=== PATIENT | male | born 1960 | race African-American/Black ===

== ENCOUNTER 2016-10-07 10:39 | Inpatient (IN) | payer OTHER ==
[~2016-10-07] VITALS: Ht 185.4 cm; Wt 149.2 kg
[~2016-10-07 10:39] MED LIST: ALLOPURINOL100 MG PO; BACO TOP; BG MC; COL100 PO; COZ50 PO; COZAAR50 MG PO; DONLUD PO; ECO81 PO; ELA10 PO; ELA25 PO; HIBICLENS118 ML TOP; HUMULIN R100 U/1 M1 SC; HYD25 PO; HYDROCHLOROTHIA25 MG PO; IND50 PO; INDOMETHACIN50 MG PO; INSR SC; JANUVIA PO; LANTI SQ; LEVEMIR100 U/M1 SQ; LIPI20 PO; METOPROLOL TART25 M1 PO; MILK OF MA1200 MG/11 PO; MIRUD PO; MOTRIN800 MG PO; MYL80 CH; NOR10 PO; NORCO1 TA2 PO; PRO40 PO; REG10 PO; REGLAN10 MG PO; SEN PO; SYN1 PO; SYN25 PO; TORADOL10 MG PO; ZES10 PO; ZYL300 PO
[2016-10-07 11:55] LABS: BASOPHIL % 0.3 % (0-2); PLATELET COUNT 355 x10^3mcL (130-400); RED CELL DISTRIBUTION WIDTH 14.2 % (11.5-14.5)
[2016-10-07 12:15] LABS: CALCIUM 9.5 mg/dL (8.5-10.1); CARBON DIOXIDE 20.1 mmol/L (21-32); CREATININE SERUM 3.2 mg/dL (0.7-1.3); POTASSIUM SERUM 3.8 mmol/L (3.5-5.1)
[2016-10-07 12:19] LABS: ALBUMIN 3.9 g/dL (3.4-5.0); BILIRUBIN TOTAL 0.94 mg/dL (0.20-1.00)
[2016-10-07 12:21] LABS: TOTAL PROTEIN, SERUM 8.7 g/dL (6.4-8.2)
[2016-10-07 13:55] LABS: AMPHETAMINE QUAL UR NONE DETECTED (NEG <=1000)
[2016-10-07 16:04] LABS: CHOLESTEROL/HDL RATIO 4.1; MAGNESIUM 1.8 mg/dL (1.8-2.4)
[2016-10-07 16:11] LABS: FREE T4 1.52 ng/dL (0.76-1.46); T4(THYROXINE) 11.7 ug/dL (4.7-13.3)
[2016-10-07 16:38] VITALS: BP 188/130
[2016-10-07 16:41] LABS: T3 TOTAL 0.75 ng/mL
[2016-10-07 16:44] VITALS: Ht 185.4 cm; Wt 149.2 kg
[2016-10-07 21:42] VITALS: BP 193/125
[2016-10-07 22:21] VITALS: BP 147/100
[2016-10-08 06:07] VITALS: BP 111/73
[2016-10-08 06:19] LABS: BASOPHIL % 0.4 % (0-2); PLATELET COUNT 308 x10^3mcL (130-400); RED CELL DISTRIBUTION WIDTH 14.4 % (11.5-14.5)
[2016-10-08 06:37] LABS: CALCIUM 8.4 mg/dL (8.5-10.1); CARBON DIOXIDE 27.2 mmol/L (21-32); CREATININE SERUM 2.2 mg/dL (0.7-1.3); MAGNESIUM 1.8 mg/dL (1.8-2.4)
[2016-10-08 08:59] VITALS: BP 114/62
[2016-10-08 11:20] LABS: microscopic required? NO
[2016-10-08 11:26] LABS: urine erythrocyte NEGATIVE (NEGATIVE)
[2016-10-08 12:52] VITALS: BP 118/83
[2016-10-08 21:07] VITALS: BP 139/85
[2016-10-09 05:42] VITALS: BP 121/79
[2016-10-09 06:16] LABS: BASOPHIL % 0.4 % (0-2); PLATELET COUNT 302 x10^3mcL (130-400)
[2016-10-09 06:24] LABS: CALCIUM 8.5 mg/dL (8.5-10.1); CARBON DIOXIDE 27.5 mmol/L (21-32); CREATININE SERUM 1.4 mg/dL (0.7-1.3); MAGNESIUM 1.8 mg/dL (1.8-2.4); PHOSPHOROUS 3.6 mg/dL (2.5-4.9); POTASSIUM SERUM 4.2 mmol/L (3.5-5.1)
[2016-10-09 06:43] LABS: RED CELL DISTRIBUTION WIDTH 14.8 % (11.5-14.5)
[2016-10-09 11:04] VITALS: BP 134/81
== END 2016-10-09 16:04 | disposition left against medical advice (07) | DRG 48 ==
LOC: ED 10:39 → DU 15:03 → MU 10-09 14:34
PROVIDERS: Emergency Medicine; Family Medicine; ADMIT Family Medicine
DX: E11.43 Type 2 diabetes mellitus with diabetic autonomic (poly)neuropathy (principal); N17.0 Acute kidney failure with tubular necrosis; Z68.41 Body mass index [BMI] 40.0-44.9, adult; E11.65 Type 2 diabetes mellitus with hyperglycemia; I42.2 Other hypertrophic cardiomyopathy; E83.39 Other disorders of phosphorus metabolism; E66.01 Morbid (severe) obesity due to excess calories; K31.84 Gastroparesis; E03.9 Hypothyroidism, unspecified; D64.9 Anemia, unspecified; M10.9 Gout, unspecified; E78.5 Hyperlipidemia, unspecified; I11.9 Hypertensive heart disease without heart failure; I16.9 Hypertensive crisis, unspecified
CPT/HCPCS: 80307; 83880; 84439; J1170; J1200; J1815; J1885; J2270; J2550; J2765; J3010; J3490; J7030; J8597; Q0092

== ENCOUNTER 2016-11-25 07:54 | Inpatient (IN) | payer OTHER ==
[~2016-11-25] VITALS: Ht 185.4 cm; Wt 153.3 kg
[2016-11-25] VITALS (7 sets, daily range): BP systolic 104–233; BP diastolic 69–136
--- NOTE | 2016-11-25 08:10 | NUR ---
DR RAI AT BEDSIDE FOR MSE. PT C/O ABD PAIN AND NAUSEA/VOMITING FOR 2 DAYS. PT IS ALERT AND ORIENTED AND BREATHING IS LOUD/MOANING BUT UNLABORED AND EVEN. PT TALKING IN COMPLETE SENTENCES.
--- NOTE | 2016-11-25 08:16 | NUR ---
EKG IN PROGRESS AT BEDSIDE.
--- NOTE | 2016-11-25 08:38 | NUR ---
PT REFUSING TO GIVE URINE SAMPLE RIGHT NOW; PT STATES HE "IS IN TOO MUCH PAIN RIGHT NOW" AND CAN NOT PROVIDE A SAMPLE.
[2016-11-25 08:43] LABS: BASOPHIL % 0.3 % (0-2); PLATELET COUNT 249 x10^3mcL (130-400); RED CELL DISTRIBUTION WIDTH 14.2 % (11.5-14.5)
--- NOTE | 2016-11-25 08:47 | NUR ---
PT NO LONGER MOANING OUT LOUD, RESTING WITH EYES CLOSED IN BED, EASILY AROUABLE AND PT ASKING "WHAT IS HE GIVING ME FOR THE PAIN?" I PROCEEDED TO TELL THE PT THE REMAINING MEDICAIONS THAT STILL NEED TO BE GIVEN AND HE RESPONDED "CAN YOU TELL THE DR NONE OF THESE ARE WORKING" I ADVISED THE PT TO RECIEVE THE REMAINING MEDICAITONS AND THEN I WILL MAKE THE DR AWARE. PT RETURNED TO POC, RESTING AND BREATHING IS UNLABORED AND EVEN, PT ON FULL CM, SIDE RAILS UP FOR SAFETY, CALL LIGHT IN REACH AND DOOR IS OPEN.
[2016-11-25 08:49] LABS: ALKALINE PHOSPHATASE 100 U/L (46-116); ALT/SGPT 29 U/L (16-63); AMYLASE 60 U/L (25-115); AST/SGOT 24 U/L (15-37); BILIRUBIN TOTAL 0.83 mg/dL (0.20-1.00); CARBON DIOXIDE 18.3 mmol/L (21-32); CHLORIDE SERUM 99 mmol/L (98-107); CREATININE SERUM 2.5 mg/dL (0.7-1.3); GFR1 29 mL/min; GLUCOSE SERUM 438 mg/dL (74-106); LIPASE 302 IU/L (73-393); POTASSIUM SERUM 3.5 mmol/L (3.5-5.1); SODIUM SERUM 136 mmol/L (136-145)
--- NOTE | 2016-11-25 09:03 | NUR ---
DR RAI AWARE PT STATING THE MEDICATION IS NOT WORKING, PT STILL RESTIGN IN POC, EYES CLOSED AND I WILL CONTINUE TO MONITOR PT.
--- NOTE | 2016-11-25 10:13 | NUR ---
PT ADVISING THE MEDICAITON IS NOT WORKING. MD AWARE. PT RESTING IN POC, ON CM, AND CALL LIGHT IN HAND.
--- NOTE | 2016-11-25 11:04 | NUR ---
PT UNABLE TO PROVIDE ANY NAMES OF HOME MEDICAITON AT THIS TIME. PT SAID "IM IN TOO MUCH PAIN AND YOU KRAIG SHOULD HAVE THEM."
--- NOTE | 2016-11-25 11:09 | NUR ---
CALLED AND GAVE REPORT TO LAURO THOMAS RN, SHE IS REQUESTING ER DR ESCOTO HTN MEDS. DR RAI AWARE.
--- NOTE | 2016-11-25 11:29 | NUR ---
RESIDENT AT BEDSIDE WITH PT.
--- NOTE | 2016-11-25 11:30 | NUR ---
PT SLEEPING IN BED RIGHT LATERAL WITH HANDS TUCKED UNDER HEAD. PT AROUSABLE TO VERBAL STIMULI AND NOW MOANING AND STATING HE IS IN JUST MUCH PAIN WHEN HE GOT HERE. DR SWEENEY AWARE OF HIS PAIN.
--- NOTE | 2016-11-25 11:54 | NUR ---
PT BEING TRANSPORTED TO THE FLOOR VIA GURNEY ON AND ALL BELONGINGS WITH PT.
--- NOTE | 2016-11-25 12:15 | NUR ---
ADMITTED FROM ER VIA GUERNEY ACCOMPANIED BY ER NURSE.CHIEF C./O VOMITTING AND DIARRHEA X 3 DAYS.AAO X4.C/O ABD'L PAIN AT 10/10 PAIN SCALE.LUNGS CLEAR. ON SR ON THE MONITOR # 6 HR=98.ADMISSION ASSESSMENT AND HX COMPLETED.CALL LIGTH WITHIN REACH.INSTRUCTED TO CALL FOR ANY PAIN/DISCOMFORT.WILL CONTINUE TO MONITOR PT.
--- NOTE | 2016-11-25 12:25 | NUR ---
MEDICATED PT WITH TORADOL 30 MG IVP ORDERED FOR C/O ABD'L PAIN AT 10/10 PAIN SCALE.WILL CONTINUE TO MONITOR PT.
[2016-11-25 12:44] LABS: CHOLESTEROL/HDL RATIO 4.4; T3 TOTAL 0.89 ng/mL
[2016-11-25 12:53] LABS: FREE T4 1.6 ng/dL (0.76-1.46); FREE THYROXINE INDEX 4.4 ug/dL (1.4-4.5); T4(THYROXINE) 12.2 ug/dL (4.7-13.3)
[2016-11-25 12:57] LABS: microscopic required? YES; urine erythrocyte 1+ (NEGATIVE)
[2016-11-25 13:04] LABS: AMPHETAMINE QUAL UR NONE DETECTED (NEG <=1000)
--- NOTE | 2016-11-25 15:29 | NUR ---
GAVE HYDRALAZINE 10 MG IVP FOR II=366/108,HR= 101.WILL CONTINUE TO MONITOR.
--- NOTE | 2016-11-25 16:03 | NUR ---
RECHECKED XZ=018/104 FD=947 AFTER GIVING HIM HYDRALAZINE 10 MG IVP ORDERED.
--- NOTE | 2016-11-25 16:50 | NUR ---
GAVE MORPHINE 2 MG IVP ORDERED FOR C/O ABD'L PAIN
--- NOTE | 2016-11-25 16:54 | NUR ---
INFORMED ABOUT PT'S YP=911.REPEATED JT=632 COVERED WITH REG INSULIN 21 UNITS PER SLIDING SCALE.
--- NOTE | 2016-11-25 20:24 | NUR ---
PT. DOZING, EASY TO WAKE, ORIENTED X4, DENIES HEADACHE OR DIZZINESS. BREATH SOUNDS CLEAR THROUGHOUT LUNG ALVAREZ, RESP. EVEN, UNLABORED. NO SOB NOTED. DENIES CHESTPAIN OR DISCOMFORT. AB. SOFT AND ROUND, OBESE. C/O ABD. PAIN, 8/10. DENIES NAUSEA. TRACE EDEMA TO BLE. PEDAL PULSES STRONG TATI. IVF INFUSING WELL, SITE WNL. CALL LIGHT WITHIN REACH.
--- NOTE | 2016-11-25 20:27 | NUR ---
PT. C/O ABD. PAIN, ACHING, 02/13. PRN MORPHINE GIVEN. WILL MONITOR PT.
--- NOTE | 2016-11-26 01:53 | NUR ---
PT. SLEEPING. NO FURTHER C/O ABD. PAIN SINCE BEING MEDICATED EARLIER. NO C/O N/V. REMAINS NSR ON MONITOR. IVF INFUSING WELL W/ SITE INTACT. CALL LIGHT WITHIN REACH.
--- NOTE | 2016-11-26 05:36 | NUR ---
PT. REQUESTING BATH. HAD LARGE LOOSE BM AFTER RECEIVING LAXATIVE YESTERDAY EVENING. TELE REMOVED, PT. ASSISTED TO BRP.
[2016-11-26 06:18] LABS: BASOPHIL % 0.4 % (0-2); PLATELET COUNT 237 x10^3mcL (130-400)
[2016-11-26 06:25] VITALS: BP 101/66
[2016-11-26 06:34] LABS: CALCIUM 9.1 mg/dL (8.5-10.1); CARBON DIOXIDE 26.3 mmol/L (21-32); CREATININE SERUM 2.5 mg/dL (0.7-1.3); MAGNESIUM 1.9 mg/dL (1.8-2.4); PHOSPHOROUS 5.2 mg/dL (2.5-4.9); POTASSIUM SERUM 4.2 mmol/L (3.5-5.1)
[2016-11-26 07:20] LABS: RED CELL DISTRIBUTION WIDTH 14.9 % (11.5-14.5)
--- NOTE | 2016-11-26 07:20 | NUR ---
AAO X4.DENIES ANY PAIN AT THE MOMENT.LUNGS CLEAR.ON SR ON THE MONITORIVF NS GOING AT 50 ML/HR INFUSING WELL.CALL LIGHT WITHIN REACH.INSTRUCTED TO CALL FOR ANY PAIN/DISOCMFORT.WILL CONTINUE TO MONITOR.
--- NOTE | 2016-11-26 08:15 | NUR ---
AND MEDICINE TEAM AT BEDSIDE. DISCUSS TO PT ABOUT THE PLAN OF CARE. WILL GET HIS BLOOD SUGAR UNDER CONTROL AND WILL STAY TODAY.PT COOPERATIVE WITH THE PLAN OF CARE.
[2016-11-26 09:59] VITALS: BP 98/61
[2016-11-26 14:39] VITALS: BP 140/92
--- NOTE | 2016-11-26 15:00 | NUR ---
PT COMFORTABLE NO COMPLAINTS.
--- NOTE | 2016-11-26 15:26 | NUR ---
Initial Nutrition Assessment Dx: Gastroparesis, Pain, Vomiting x3 days PMHx: Super morbid obesity, DM, HTN, gastroparesis, cannabinoid abuse PSHx: None Labs: BG 187 H, BUN 31 H, Cr 2.5 H, Phosphorous 5.2 H, WBC 13.7 H, H/H 11.9/37 L; (11/25) A1C 10.1 H Meds: Colace, D10%, dulcolax, humulin R, hydrochlorothiazide, levemir, phoslo, reglan, senokot, synthroid, theragran, zofran Current Diet Order: CCHO-60 gm, Low Purine PO Intakes: (11/25) L: 100%, D: 50%; (11/26) B: 20% Ht: 73", 6' 1". Wt: 337 lb, 153 kg. BMI: 44.6 kg/m2 (Obesity Class III) IBW: 184 lb, 84 kg. %IBW: 182%. Adj BW: 222 lb, 101 kg. UBW: 360 lb, 164 kg. Wt Hx: (10/08/16) 328 lb, 149 kg. Age: 56 Y/O M Food Allergies: None Skin: Intact. Marko 23. Edema: Trace BLE GI: Active bowel sounds. Last BM x1 11/26. Nursing Trigger: Nausea, Vomiting, Diarrhea >3 days. Pt found with abd pain with N/V possibly secondary to diabetic gastroparesis vs cannabinoid hyperemesis syndrome per doctor's notes. Pt was seen resting in bed, appeared overly-nourished, consistent with documented anthropometrics. Pt reported good appetite now, no issues/concerns. Spoke with Dr. Guajardo at nursing station regarding Purine diet, doctor stated that pt has gout, needs to be on low purine diet for now. RD acknowledged. Problem with: N: None. V: None. D: None. C: None. Problems with: Chewing: None. Swallowing: None. Current Appetite: Good Recent Weight Change: +9 lb. % Weight Change: 2.7% weight gain within 1 month Vitamin/Supplement use: None Diet at Home: Regular; cooks meals at home Physical Activity: Walks sometimes Education: RD offered nutrition education to pt, pt declined x2. DM flyer provided and noted on table. Noted that RD attempted to provide nutrition education to pt on 10/08/16, however, pt declined. Estimated Nutritional Needs Based IBW 184 lb, 84 kg Energy: 8164-4903 kcal/day (25-30 kcal/kg for Maintenance) Protein: 84 gm/day (1 gm/kg for Maintenance) Fluids: 2520 ml/day (30 ml/kg for Maintenance) or per doctor Nutrition Diagnosis Altered nutrition related labs related to endocrine dysfunction, possible dietary non-compliance as evidenced by elevated BG 187 mg/dL, A1C 10.1%, declined nutrition education x3 Intervention 1. Continue CCHO-60 gm, Low Purine diet per doctor. Monitor/Evaluate Goal: PO intakes to meet at least 75% of estimated needs with tolerance Monitor: PO intakes, tolerance to diet, labs (BG), skin integrity, GI function, weights F/U in 7 days as LOW risk (12/03)
[2016-11-26 16:04] VITALS: BP 92/54
--- NOTE | 2016-11-26 18:18 | NUR ---
NO SIGNIFICANT CHANGE NOTED.WILL ENDORSE TO NEXT SHIFT.
--- NOTE | 2016-11-26 18:55 | NUR ---
GAVE TORADOL 3O MG IVP ORDERED FOR C/O ABD'L PAIN AT 8/10 PAIN SCALE.
--- NOTE | 2016-11-26 19:50 | NUR ---
PT. AWAKE, ALERT, ORIENTED X4. DENIES HEADACHE OR DIZZINESS. BREATH SOUNDS CLEAR THROUGHOUT LUNG ALVAREZ, RESP. EVEN, UNLABORED. NO SOB NOTED. DENIES CHESTPAIN. PT. RECEIVED PRN PAIN MEDICATION, TORADOL FOR ABD. PAIN. PT. STATED THAT HE IS STILL IN PAIN. ABD. SOFT AND ROUND, OBESE. BOWEL SOUNDS ACTIVE, SOME NAUSEA PER PT. PAIN LEVEL 8/10. NO EDEMA NOTED TO EXTREMITIES, PEDAL PULSES STRONG TATI. IVF NS AT 50CC/HR, RAC. CALL LIGHT WITHIN REACH.
--- NOTE | 2016-11-26 20:27 | NUR ---
PT. C/O CONTINUED PAIN. ALSO NAUSEA. PRN NORCO AND ZOFRAN GIVEN ORDERED, WILL MONITOR. CALL LIGHT WITHIN REACH.
[2016-11-26 21:43] VITALS: BP 118/52
--- NOTE | 2016-11-26 23:17 | NUR ---
PT. STILL C/O ABD. PAIN. PRNMEDS NOT SCHEDULED YET. DR. NESBITT MADE AWARE. ONE TIME DOSE OF PERCOCET ORDERED AND GIVEN. PT. ADVICED THAT IV OPIODDS ARE NOT ORDERED AT THIS TIME. PT. STATED THAT THE OTHER MEDICATIONS DOES NOT WORK. PT. MADE AWARE THAT THE DOCTORS KNOW. PT. ENCOURAGED TO TRY PERCOCET, HE AGREED. WILL MONITOR.
--- NOTE | 2016-11-27 03:55 | NUR ---
PT. DOZING INTERMITTENTLY. EYES CLOSED AND APPEARS TO BE COMFORTABLE. RECEIVED MULTIPLE PO MED OVER THE PAST 6-8 HRS FOR C/O ABD. PAIN. PT. SR ON HEART MONITOR. IVF INFUSING WELL. CALL LIGHT REMAINS WITHIN REACH.
[2016-11-27 05:27] VITALS: BP 185/95
[2016-11-27 06:11] LABS: BASOPHIL % 0.3 % (0-2); PLATELET COUNT 247 x10^3mcL (130-400); RED CELL DISTRIBUTION WIDTH 14.4 % (11.5-14.5)
[2016-11-27 06:48] LABS: CARBON DIOXIDE 22.5 mmol/L (21-32); MAGNESIUM 1.9 mg/dL (1.8-2.4); PHOSPHOROUS 4.7 mg/dL (2.5-4.9); POTASSIUM SERUM 4.3 mmol/L (3.5-5.1)
--- NOTE | 2016-11-27 07:30 | NUR ---
PT WAS ENDORSE TO ME THIS MORNING, A/O X4 ,RESTING IN BED VERY COMFORTABLE, NO ACUTE RESP DISTRESS NOTE . IV INFUSING RAC 50 ML/HR NO REDNESS OR SWELLING NOTED , BED IN LOW POSITION, CALL LIGHT IN REACH. WILL CONTINUE PLAN OF CARE.
--- NOTE | 2016-11-27 08:30 | NUR ---
DR GARCIA AND TEAM MADE ROUNDS, PT PLAN IS TO HAVE A BM AND DISCHARGE LATER TODAY. WILL CONTINUE PLAN OF CARE.
[2016-11-27 09:15] VITALS: BP 112/68
[2016-11-27 13:25] VITALS: BP 112/68
[2016-11-27] MEDS ORDERED: LEVEMIR100 U/M1 SQ (14:15)
[2016-11-27] MEDS ORDERED: REGLAN10 M1 PO (14:16)
[2016-11-27] MEDS ORDERED: ERYTHROMYCIN B250 MG PO (14:28)
[2016-11-27] MEDS ORDERED: STOOL SOFTENER250 MG PO (14:30)
[2016-11-27] MEDS ORDERED: MIRALAX17 GM/Dose PO (14:31)
--- NOTE | 2016-11-27 14:55 | NUR ---
DISCHARGED PT AND EXPLAINED ALL DC INSTRUCTIONS. DC PT IV, TOLERATED WELL. STUDENT NURSE WHEELED HIM OUT THE HOSPITAL WITH HIS AND GRANDKIDS BY HIS SIDE. PT WAS IN NO PAIN OR ACUTE DISTRESS.
--- NOTE | 2016-11-27 17:31 | NUR ---
NURSING CO-SIGN THE DOCUMENTATION ENTERED BY HAILEY STACK HAS BEEN REVIEWED. REVIEWED/CO-SIGNED BY: Lay Leahy DOCUMENTATION DONE BY:JAVI FULTON
== END 2016-11-27 14:53 | disposition home or self-care (01) | DRG 48 ==
LOC: ED 07:54 → DU 10:50 → MU 11-27 06:52
PROVIDERS: Emergency Medicine; ADMIT Family Medicine
DX: E11.43 Type 2 diabetes mellitus with diabetic autonomic (poly)neuropathy (principal); N17.0 Acute kidney failure with tubular necrosis; E43 Unspecified severe protein-calorie malnutrition; E11.65 Type 2 diabetes mellitus with hyperglycemia; K31.84 Gastroparesis; E11.21 Type 2 diabetes mellitus with diabetic nephropathy; I10 Essential (primary) hypertension; E02 Subclinical iodine-deficiency hypothyroidism; I16.0 Hypertensive urgency; F12.10 Cannabis abuse, uncomplicated; E66.01 Morbid (severe) obesity due to excess calories; M10.9 Gout, unspecified; Z53.29 Procedure and treatment not carried out because of patient's decision for other reasons; D72.829 Elevated white blood cell count, unspecified; E83.39 Other disorders of phosphorus metabolism; M19.90 Unspecified osteoarthritis, unspecified site; Z79.4 Long term (current) use of insulin; Z79.82 Long term (current) use of aspirin; Z68.41 Body mass index [BMI] 40.0-44.9, adult; Z91.14 Patient's other noncompliance with medication regimen; Z79.899 Other long term (current) drug therapy; Z83.3 Family history of diabetes mellitus
CPT/HCPCS: 83880; 84439; C9113; G0480; J0360; J1200; J1815; J1885; J2060; J2270; J2405; J2765; J3490; J7030

== ENCOUNTER 2017-01-09 20:14 | Inpatient (IN) | payer OTHER ==
[~2017-01-09] VITALS: Ht 185.4 cm; Wt 149.7 kg
[~2017-01-09 20:14] MED LIST changes: +ERYTHROMYCIN B250 MG PO; +MIRALAX17 GM/Dose PO; +REGLAN10 M1 PO; +STOOL SOFTENER250 MG PO
[2017-01-09 22:39] LABS: BASOPHIL % 0.9 % (0-2); PLATELET COUNT 255 x10^3mcL (130-400); RED CELL DISTRIBUTION WIDTH 13.7 % (11.5-14.5)
[2017-01-09 22:46] LABS: CALCIUM 9.1 mg/dL (8.5-10.1); CARBON DIOXIDE 24.3 mmol/L (21-32); CREATININE SERUM 2.6 mg/dL (0.7-1.3); POTASSIUM SERUM 3.8 mmol/L (3.5-5.1)
[2017-01-09 22:51] LABS: ALBUMIN 3.5 g/dL (3.4-5.0); BILIRUBIN TOTAL 0.4 mg/dL (0.20-1.00); TOTAL PROTEIN, SERUM 7.9 g/dL (6.4-8.2)
[2017-01-10] VITALS (8 sets, daily range): BP systolic 94–178; BP diastolic 44–114
[2017-01-10] MEDS ORDERED: ZYRTEC10 MG PO (00:42)
[2017-01-10] MEDS ORDERED: ATORVASTATIN CA40 M1 PO (00:42)
[2017-01-10] MEDS ORDERED: LEVOTHYROXINE0.05 M2 PO (00:43)
[2017-01-10] MEDS ORDERED: ASPIR 8181 MG PO (00:43)
[2017-01-10] MEDS ORDERED: STOOL SOFTENER250 M2 PO (00:44)
[2017-01-10] MEDS ORDERED: LOSARTAN POTASS50 M1 PO (00:44)
[2017-01-10] MEDS ORDERED: SIMETHICONE125 M1 PO (00:46)
[2017-01-10] MEDS ORDERED: ERYTHROMYCIN B250 MG PO (00:47)
[2017-01-10] MEDS ORDERED: ALLOPURINOL100 MG PO (00:48)
[2017-01-10] MEDS ORDERED: REGLAN5 M1 PO (00:48)
[2017-01-10] MEDS ORDERED: ZOFRAN ODT8 MG PO (00:49)
[2017-01-10] MEDS ORDERED: SENNA8.6 M2 PO (00:50)
[2017-01-10] MEDS ORDERED: HYDROCHLOROTH12.5 M3 PO (00:50)
[2017-01-10] MEDS ORDERED: BENZONATATE200 MG PO (00:50)
[2017-01-10 02:25] LABS: T3 TOTAL 0.67 ng/mL
[2017-01-10 02:48] LABS: CHOLESTEROL/HDL RATIO 4.1; FREE T4 1.17 ng/dL (0.76-1.46); FREE THYROXINE INDEX 2.7 ug/dL (1.4-4.5); MAGNESIUM 2.1 mg/dL (1.8-2.4); PHOSPHOROUS 4.1 mg/dL (2.5-4.9); T4(THYROXINE) 7.8 ug/dL (4.7-13.3)
[2017-01-10 12:23] LABS: BASOPHIL % 1.1 % (0-2); PLATELET COUNT 247 x10^3mcL (130-400); RED CELL DISTRIBUTION WIDTH 13.8 % (11.5-14.5)
[2017-01-10 12:36] LABS: CALCIUM 8.4 mg/dL (8.5-10.1); CARBON DIOXIDE 23.5 mmol/L (21-32); CREATININE SERUM 2.2 mg/dL (0.7-1.3)
[2017-01-10 16:44] LABS: microscopic required? NO
[2017-01-10 17:05] LABS: urine erythrocyte NEGATIVE (NEGATIVE)
[2017-01-10 17:21] LABS: AMPHETAMINE QUAL UR NONE DETECTED (NEG <=1000)
[2017-01-11 06:52] VITALS: BP 105/66
[2017-01-11 07:45] VITALS: BP 108/64
[2017-01-11 08:59] VITALS: Ht 185.4 cm; Wt 149.7 kg
[2017-01-11 13:10] VITALS: BP 140/87
[2017-01-11 18:02] VITALS: BP 115/68
[2017-01-11 21:26] VITALS: BP 123/77
[2017-01-12 06:44] VITALS: BP 143/81
[2017-01-12 07:08] LABS: CALCIUM 8.5 mg/dL (8.5-10.1); CARBON DIOXIDE 23.8 mmol/L (21-32); CREATININE SERUM 1.4 mg/dL (0.7-1.3); PHOSPHOROUS 3.3 mg/dL (2.5-4.9); POTASSIUM SERUM 3.9 mmol/L (3.5-5.1)
[2017-01-12 07:10] LABS: BASOPHIL % 0.4 % (0-2); PLATELET COUNT 224 x10^3mcL (130-400); RED CELL DISTRIBUTION WIDTH 13.8 % (11.5-14.5)
[2017-01-12 07:40] VITALS: BP 118/75
[2017-01-12] MEDS ORDERED: CETIRIZINE HYDR10 MG PO (12:42)
[2017-01-12 14:36] VITALS: BP 129/78
[2017-01-12 17:21] VITALS: BP 119/68
[2017-01-12 21:37] VITALS: BP 145/81
[2017-01-13 06:18] VITALS: BP 131/76
[2017-01-13 06:58] LABS: BASOPHIL % 0.4 % (0-2); PLATELET COUNT 202 x10^3mcL (130-400); RED CELL DISTRIBUTION WIDTH 13.6 % (11.5-14.5)
[2017-01-13 07:52] LABS: CALCIUM 8.6 mg/dL (8.5-10.1); CARBON DIOXIDE 22.1 mmol/L (21-32); CHLORIDE SERUM 106 mmol/L (98-107); CREATININE SERUM 1.2 mg/dL (0.7-1.3); GFR1 > 60 mL/min; GLUCOSE SERUM 114 mg/dL (74-106); MAGNESIUM 1.8 mg/dL (1.8-2.4); PHOSPHOROUS 3.5 mg/dL (2.5-4.9); SODIUM SERUM 139 mmol/L (136-145)
[2017-01-13 09:26] VITALS: BP 109/56
[2017-01-13 10:48] VITALS: BP 156/86
[2017-01-13 10:49] VITALS: BP 156/86
[2017-01-13] MEDS ORDERED: LIPI20 PO ×2 (11:44→12:01)
[2017-01-13] MEDS ORDERED: NEEDLES1 EAC1 MC (11:44)
[2017-01-13] MEDS ORDERED: SENNA8.6 M2 PO (11:44)
[2017-01-13] MEDS ORDERED: [UNRECOGNIZED DRUG - OTHER] MC (11:44)
[2017-01-13] MEDS ORDERED: METOCLOPRAMIDE10 M2 PO (11:44)
[2017-01-13] MEDS ORDERED: LANTUS100 U/ML SC (11:44)
[2017-01-13] MEDS ORDERED: COLACE100 MG PO (11:44)
[2017-01-13] MEDS ORDERED: SIMETHICONE125 M1 PO (11:44)
[2017-01-13] MEDS ORDERED: HYDROCHLOROTHIA25 MG PO (12:01)
[2017-01-13] MEDS ORDERED: LOSARTAN POTASS50 M1 PO (12:01)
== END 2017-01-13 12:20 | disposition home or self-care (01) | DRG 48 ==
LOC: ED 20:14 → DU 01-10 00:37 → MU 01-12 11:56
PROVIDERS: Emergency Medicine; ADMIT Family Medicine
DX: E11.43 Type 2 diabetes mellitus with diabetic autonomic (poly)neuropathy (principal); N17.0 Acute kidney failure with tubular necrosis; E11.65 Type 2 diabetes mellitus with hyperglycemia; K31.84 Gastroparesis; Z79.4 Long term (current) use of insulin; I16.0 Hypertensive urgency; E66.01 Morbid (severe) obesity due to excess calories; Z68.41 Body mass index [BMI] 40.0-44.9, adult; Z83.3 Family history of diabetes mellitus; K56.41 Fecal impaction; D64.9 Anemia, unspecified; E78.2 Mixed hyperlipidemia; E02 Subclinical iodine-deficiency hypothyroidism
CPT/HCPCS: 83880; 84439; J0500; J1170; J1200; J1815; J1885; J2270; J2765; J7030; Q0092

== ENCOUNTER 2017-04-18 18:11 | Inpatient (IN) | payer OTHER ==
[~2017-04-18] VITALS: Ht 185.4 cm; Wt 164.7 kg
[~2017-04-18 18:11] MED LIST changes: +ASPIR 8181 MG PO; +ATORVASTATIN CA40 M1 PO; +BENZONATATE200 MG PO; +CETIRIZINE HYDR10 MG PO; +COLACE100 MG PO; +HYDROCHLOROTH12.5 M3 PO; +LANTUS100 U/ML SC; +LEVOTHYROXINE0.05 M2 PO; +LOSARTAN POTASS50 M1 PO; +METOCLOPRAMIDE10 M2 PO; +NEEDLES1 EAC1 MC; +REGLAN5 M1 PO; +SENNA8.6 M2 PO; +SIMETHICONE125 M1 PO; +STOOL SOFTENER250 M2 PO; +ZOFRAN ODT8 MG PO; +ZYRTEC10 MG PO; +[UNRECOGNIZED DRUG - OTHER] MC
[2017-04-18] MEDS ORDERED: ZOF4 PO (19:57)
[2017-04-18] MEDS ORDERED: ASPIR 8181 MG PO (19:57)
[2017-04-18] MEDS ORDERED: ALLOPURINOL100 MG PO (19:58)
[2017-04-18 20:11] LABS: BASOPHIL % 0.4 % (0-2); PLATELET COUNT 286 x10^3mcL (130-400)
[2017-04-18 20:16] LABS: RED CELL DISTRIBUTION WIDTH 14.8 % (11.5-14.5)
[2017-04-18 20:21] LABS: ALBUMIN 4.1 g/dL (3.4-5.0); CALCIUM 9.8 mg/dL (8.5-10.1); CARBON DIOXIDE 19.3 mmol/L (21-32); POTASSIUM SERUM 3.6 mmol/L (3.5-5.1)
[2017-04-18 20:24] LABS: MAGNESIUM 2.3 mg/dL (1.8-2.4); PHOSPHOROUS 3.3 mg/dL (2.5-4.9)
[2017-04-18 20:28] LABS: CREATININE SERUM 4.8 mg/dL (0.7-1.3); TOTAL PROTEIN, SERUM 9.4 g/dL (6.4-8.2)
[2017-04-18 20:35] LABS: FREE T4 0.39 ng/dL (0.76-1.46)
[2017-04-18 20:36] LABS: FREE THYROXINE INDEX 0.7 ug/dL (1.4-4.5); T4(THYROXINE) 2.4 ug/dL (4.7-13.3)
[2017-04-18 20:41] LABS: T3 TOTAL 0.07 ng/mL
[2017-04-18 21:17] VITALS: BP 135/90
[2017-04-19] VITALS (8 sets, daily range): BP systolic 83–154; BP diastolic 48–105
[2017-04-19 06:30] LABS: BASOPHIL % 0.2 % (0-2); PLATELET COUNT 261 x10^3mcL (130-400)
[2017-04-19 06:49] LABS: RED CELL DISTRIBUTION WIDTH 14.8 % (11.5-14.5)
[2017-04-19 06:55] LABS: microscopic required? YES; urine erythrocyte 2+ (NEGATIVE)
[2017-04-19 07:05] LABS: ALBUMIN 3.8 g/dL (3.4-5.0); BILIRUBIN TOTAL 0.69 mg/dL (0.20-1.00); CALCIUM 9.1 mg/dL (8.5-10.1); CARBON DIOXIDE 19.5 mmol/L (21-32); POTASSIUM SERUM 4.7 mmol/L (3.5-5.1)
[2017-04-19 07:27] LABS: CREATININE SERUM 4.8 mg/dL (0.7-1.3)
[2017-04-19 07:32] LABS: AMPHETAMINE QUAL UR NONE DETECTED (NEG <=1000)
[2017-04-20 05:39] VITALS: BP 87/58
[2017-04-20 06:38] LABS: CARBON DIOXIDE 23.9 mmol/L (21-32); MAGNESIUM 2.4 mg/dL (1.8-2.4); PHOSPHOROUS 5.2 mg/dL (2.5-4.9); POTASSIUM SERUM 4.3 mmol/L (3.5-5.1)
[2017-04-20 06:47] LABS: CREATININE SERUM 4.2 mg/dL (0.7-1.3)
[2017-04-20 07:12] LABS: BASOPHIL % 0.6 % (0-2); PLATELET COUNT 220 x10^3mcL (130-400)
[2017-04-20 07:13] LABS: RED CELL DISTRIBUTION WIDTH 14.9 % (11.5-14.5)
[2017-04-20 08:57] VITALS: BP 87/56
[2017-04-20 12:36] LABS: RED BLOOD CELLS 3.47 M/mm3 (4.52-5.90)
[2017-04-20 12:37] LABS: IRON 94 ug/dL (65-170)
[2017-04-20 12:38] LABS: TOTAL IRON BINDING CAPACITY 211 ug/dL (250-450)
[2017-04-20 14:00] VITALS: BP 129/94
[2017-04-20 17:22] VITALS: BP 110/73
[2017-04-20 21:34] VITALS: BP 109/69
[2017-04-21 05:43] VITALS: BP 87/53
[2017-04-21 05:58] LABS: BASOPHIL % 0.5 % (0-2); PLATELET COUNT 230 x10^3mcL (130-400)
[2017-04-21 06:24] LABS: CARBON DIOXIDE 23.3 mmol/L (21-32); CREATININE SERUM 3.2 mg/dL (0.7-1.3); MAGNESIUM 2.2 mg/dL (1.8-2.4); PHOSPHOROUS 3.7 mg/dL (2.5-4.9); POTASSIUM SERUM 4.4 mmol/L (3.5-5.1)
[2017-04-21 06:38] LABS: RED CELL DISTRIBUTION WIDTH 14.6 % (11.5-14.5)
[2017-04-21 08:00] VITALS: BP 129/86
[2017-04-21 13:24] VITALS: BP 131/76
[2017-04-21] MEDS ORDERED: MOT800 PO (18:02)
== END 2017-04-21 18:50 | disposition home or self-care (01) | DRG 48 ==
LOC: ED 18:11 → MU 19:31 → DU 19:31 → MU 04-20 15:04
PROVIDERS: Emergency Medicine; ADMIT Family Medicine Sports Medicine
DX: E11.43 Type 2 diabetes mellitus with diabetic autonomic (poly)neuropathy (principal); N17.0 Acute kidney failure with tubular necrosis; D68.69 Other thrombophilia; Z68.42 Body mass index [BMI] 45.0-49.9, adult; E87.1 Hypo-osmolality and hyponatremia; E11.65 Type 2 diabetes mellitus with hyperglycemia; E66.01 Morbid (severe) obesity due to excess calories; K31.84 Gastroparesis; E03.9 Hypothyroidism, unspecified; D64.9 Anemia, unspecified; E78.5 Hyperlipidemia, unspecified; Z79.4 Long term (current) use of insulin; Z83.3 Family history of diabetes mellitus; Z82.49 Family history of ischemic heart disease and other diseases of the circulatory system
CPT/HCPCS: 83880; 84439; J1815; J1885; J2060; J2270; J2405; J3490; J7030; J8597; Q0092

== ENCOUNTER 2017-05-04 02:13 | Emergency (ER) | payer OTHER ==
[~2017-05-04] VITALS: Ht 185.4 cm; Wt 167.0 kg
[~2017-05-04 02:13] MED LIST changes: +MOT800 PO; +ZOF4 PO
[2017-05-04 06:41] VITALS: BP 120/70
== END 2017-05-04 06:41 | disposition home or self-care (01) ==
LOC: ED 02:13
DX: S90.32XA Contusion of left foot, initial encounter (principal); X58.XXXA Exposure to other specified factors, initial encounter; Y93.89 Activity, other specified; Y92.89 Other specified places as the place of occurrence of the external cause; Y99.8 Other external cause status
CPT/HCPCS: 90714; Q0092

== ENCOUNTER 2017-06-06 17:58 | Emergency (ER) | payer OTHER ==
[~2017-06-06] VITALS: Ht 185.4 cm; Wt 164.7 kg
[2017-06-06 18:03] VITALS: BP 162/101
== END 2017-06-06 18:44 | disposition home or self-care (01) ==
LOC: ED 17:58
DX: E11.621 Type 2 diabetes mellitus with foot ulcer (principal)

== ENCOUNTER 2017-11-21 01:55 | Emergency (ER) | payer OTHER ==
[2017-11-21 02:53] LABS: CALCIUM 9.2 mg/dL (8.5-10.1); CARBON DIOXIDE 22.1 mmol/L (21-32); CREATININE SERUM 2.5 mg/dL (0.7-1.3); POTASSIUM SERUM 3.9 mmol/L (3.5-5.1)
[2017-11-21 02:55] LABS: PLATELET COUNT 284 x10^3mcL (130-400)
[2017-11-21 02:56] LABS: RED CELL DISTRIBUTION WIDTH 14.9 % (11.5-14.5)
[2017-11-21 02:58] LABS: ALBUMIN 3.5 g/dL (3.4-5.0); BILIRUBIN TOTAL 0.83 mg/dL (0.20-1.00)
[2017-11-21 03:00] LABS: TOTAL PROTEIN, SERUM 9.2 g/dL (6.4-8.2)
[2017-11-21 03:56] LABS: BAND NEUTROPHIL 9 % (0-10); METAMYELOCTE 1 % (0-2); MONOCYTE 3 % (0-7); MYELOCYTE 1 % (0-2); SEGMENTED NEUTROPHILS 73 % (37-75)
[2017-11-21 03:58] LABS: rbc morphology (normal/abnorm) NORMAL (NORMAL)
[2017-11-21 03:59] LABS: PLATELET MORPHOLOGY FEW LARGE PLATELETS
[2017-11-21 05:33] VITALS: BP 127/60
== END 2017-11-21 05:30 | disposition home or self-care (01) ==
LOC: ED 01:55
PROVIDERS: Emergency Medicine
DX: E11.22 Type 2 diabetes mellitus with diabetic chronic kidney disease (principal); I12.9 Hypertensive chronic kidney disease with stage 1 through stage 4 chronic kidney disease, or unspecified chronic kidney disease; N18.9 Chronic kidney disease, unspecified; M19.90 Unspecified osteoarthritis, unspecified site; E03.9 Hypothyroidism, unspecified
CPT/HCPCS: J1200; J2270; J2765; J7030

== ENCOUNTER 2017-12-19 10:32 | Emergency (ER) | payer OTHER ==
[~2017-12-19] VITALS: Ht 185.4 cm; Wt 156.9 kg
[2017-12-19 10:34] VITALS: Ht 185.4 cm; Wt 156.9 kg
[2017-12-19 11:09] LABS: PLATELET COUNT 272 x10^3mcL (130-400); RED CELL DISTRIBUTION WIDTH 14.1 % (11.5-14.5)
[2017-12-19 11:12] LABS: BASOPHIL % 2.5 % (0-2)
[2017-12-19 11:16] LABS: UA SPECIFIC GRAVITY >=1.030 (1.005-1.035); microscopic required? YES; urine erythrocyte NEGATIVE (NEGATIVE)
[2017-12-19 11:20] LABS: CALCIUM 9.1 mg/dL (8.5-10.1); CARBON DIOXIDE 25.1 mmol/L (21-32); CREATININE SERUM 2.8 mg/dL (0.7-1.3); POTASSIUM SERUM 4.6 mmol/L (3.5-5.1)
[2017-12-19 11:24] LABS: ALBUMIN 3.4 g/dL (3.4-5.0); BILIRUBIN TOTAL 0.5 mg/dL (0.20-1.00)
[2017-12-19 11:41] LABS: TOTAL PROTEIN, SERUM 9.1 g/dL (6.4-8.2)
[2017-12-19 14:17] VITALS: BP 109/64
== END 2017-12-19 14:17 | disposition home or self-care (01) ==
LOC: ED 10:32
PROVIDERS: Emergency Medicine
DX: E11.22 Type 2 diabetes mellitus with diabetic chronic kidney disease (principal); I12.9 Hypertensive chronic kidney disease with stage 1 through stage 4 chronic kidney disease, or unspecified chronic kidney disease; N18.9 Chronic kidney disease, unspecified; E03.9 Hypothyroidism, unspecified; M19.90 Unspecified osteoarthritis, unspecified site
CPT/HCPCS: 83880; J2270; J2405

== ENCOUNTER 2018-02-02 09:43 | Inpatient (IN) | payer OTHER ==
[~2018-02-02] VITALS: Ht 185.4 cm; Wt 140.7 kg
[2018-02-02 09:56] VITALS: Ht 185.4 cm; Wt 140.7 kg
[2018-02-02 10:51] LABS: BASOPHIL % 0.9 % (0-2); PLATELET COUNT 271 x10^3mcL (130-400); RED CELL DISTRIBUTION WIDTH 13.8 % (11.5-14.5)
[2018-02-02 10:54] LABS: CARBON DIOXIDE 19.1 mmol/L (21-32); POTASSIUM SERUM 3.5 mmol/L (3.5-5.1)
[2018-02-02 10:58] LABS: ALBUMIN 3.5 g/dL (3.4-5.0); BILIRUBIN TOTAL 0.71 mg/dL (0.20-1.00)
[2018-02-02 11:09] LABS: TOTAL PROTEIN, SERUM 9.5 g/dL (6.4-8.2)
[2018-02-02] MEDS ORDERED: BENZONATATE200 MG PO (13:10)
[2018-02-02 13:23] LABS: CHOLESTEROL/HDL RATIO 4.1; MAGNESIUM 1.7 mg/dL (1.8-2.4); PHOSPHOROUS 2.8 mg/dL (2.5-4.9)
[2018-02-02 13:31] LABS: T3 TOTAL 1.1 ng/mL
[2018-02-02 13:33] LABS: FREE T4 2.56 ng/dL (0.76-1.46)
[2018-02-02 13:35] LABS: FREE THYROXINE INDEX 5.9 ug/dL (1.4-4.5); T4(THYROXINE) 15.4 ug/dL (4.7-13.3)
[2018-02-02 13:42] VITALS: BP 169/115
[2018-02-02 17:54] VITALS: BP 188/107
[2018-02-02 21:00] VITALS: BP 193/117
[2018-02-02 23:48] VITALS: BP 125/58
[2018-02-03 02:23] LABS: UA SPECIFIC GRAVITY 1.015 (1.005-1.035); microscopic required? YES; urine erythrocyte 1+ (NEGATIVE)
[2018-02-03 02:33] LABS: AMPHETAMINE QUAL UR NONE DETECTED (See below)
[2018-02-03 06:07] VITALS: BP 91/54
[2018-02-03 07:21] LABS: BASOPHIL % 0.6 % (0-2); PLATELET COUNT 260 x10^3mcL (130-400); RED CELL DISTRIBUTION WIDTH 14.1 % (11.5-14.5)
[2018-02-03 07:22] LABS: CARBON DIOXIDE 23.7 mmol/L (21-32); CREATININE SERUM 2.2 mg/dL (0.7-1.3); POTASSIUM SERUM 3.7 mmol/L (3.5-5.1)
[2018-02-03 09:11] VITALS: BP 90/63
[2018-02-03 18:00] VITALS: BP 99/62
[2018-02-03 21:47] VITALS: BP 111/71
[2018-02-04 05:04] VITALS: BP 97/61
[2018-02-04 06:30] LABS: BILIRUBIN TOTAL 0.4 mg/dL (0.20-1.00); CALCIUM 7.7 mg/dL (8.5-10.1); CARBON DIOXIDE 21.7 mmol/L (21-32); CREATININE SERUM 2.6 mg/dL (0.7-1.3); POTASSIUM SERUM 3.6 mmol/L (3.5-5.1); TOTAL PROTEIN, SERUM 7.6 g/dL (6.4-8.2)
[2018-02-04 06:50] LABS: ALBUMIN 2.7 g/dL (3.4-5.0); BASOPHIL % 0.5 % (0-2); PLATELET COUNT 219 x10^3mcL (130-400); RED CELL DISTRIBUTION WIDTH 13.9 % (11.5-14.5)
[2018-02-04 08:30] VITALS: BP 98/66
[2018-02-04 09:22] VITALS: BP 132/85
[2018-02-04] MEDS ORDERED: AMITIZA24 MC1 PO (10:29)
[2018-02-04 10:50] VITALS: BP 132/85
== END 2018-02-04 11:15 | disposition home or self-care (01) | DRG 48 ==
LOC: ED 09:43 → MU 11:48
PROVIDERS: Emergency Medicine; Family Medicine
DX: E11.43 Type 2 diabetes mellitus with diabetic autonomic (poly)neuropathy (principal); N17.0 Acute kidney failure with tubular necrosis; K31.84 Gastroparesis; E86.0 Dehydration; E66.01 Morbid (severe) obesity due to excess calories; Z68.41 Body mass index [BMI] 40.0-44.9, adult; E11.65 Type 2 diabetes mellitus with hyperglycemia; E03.9 Hypothyroidism, unspecified; M10.9 Gout, unspecified; E83.42 Hypomagnesemia; M19.90 Unspecified osteoarthritis, unspecified site; K59.09 Other constipation; N18.9 Chronic kidney disease, unspecified; E11.22 Type 2 diabetes mellitus with diabetic chronic kidney disease; I12.9 Hypertensive chronic kidney disease with stage 1 through stage 4 chronic kidney disease, or unspecified chronic kidney disease; D64.9 Anemia, unspecified; Z79.4 Long term (current) use of insulin; Z79.899 Other long term (current) drug therapy; Z83.3 Family history of diabetes mellitus; Z82.49 Family history of ischemic heart disease and other diseases of the circulatory system
CPT/HCPCS: 83880; 84439; J1644; J1815; J2270; J2405; J3490; J7030; J8597; Q0092

== ENCOUNTER 2018-03-25 07:52 | Emergency (ER) | payer OTHER ==
[~2018-03-25] VITALS: Ht 185.4 cm; Wt 139.3 kg
[~2018-03-25 07:52] MED LIST changes: +AMITIZA24 MC1 PO
[2018-03-25 08:42] LABS: BASOPHIL % 1.2 % (0-2); PLATELET COUNT 362 x10^3mcL (130-400)
[2018-03-25 08:47] LABS: CALCIUM 9.5 mg/dL (8.5-10.1); CARBON DIOXIDE 16.4 mmol/L (21-32); CREATININE SERUM 3.5 mg/dL (0.7-1.3); POTASSIUM SERUM 3.4 mmol/L (3.5-5.1)
[2018-03-25 08:51] LABS: ALBUMIN 3.6 g/dL (3.4-5.0); BILIRUBIN TOTAL 0.67 mg/dL (0.20-1.00)
[2018-03-25 08:52] LABS: TOTAL PROTEIN, SERUM 9.8 g/dL (6.4-8.2)
[2018-03-25 09:02] LABS: RED CELL DISTRIBUTION WIDTH 14.7 % (11.5-14.5)
[2018-03-25 09:42] VITALS: BP 150/107
== END 2018-03-25 10:38 | disposition left against medical advice (07) ==
LOC: ED 07:52
PROVIDERS: Emergency Medicine
DX: R10.84 Generalized abdominal pain (principal); K31.84 Gastroparesis; E66.9 Obesity, unspecified; N28.9 Disorder of kidney and ureter, unspecified; I10 Essential (primary) hypertension; E11.9 Type 2 diabetes mellitus without complications; M10.9 Gout, unspecified; M19.90 Unspecified osteoarthritis, unspecified site; E03.9 Hypothyroidism, unspecified; Z68.41 Body mass index [BMI] 40.0-44.9, adult
CPT/HCPCS: J2765; J3490; J7030

== ENCOUNTER 2018-06-17 06:09 | Emergency (ER) | payer OTHER ==
[~2018-06-17] VITALS: Ht 185.4 cm; Wt 140.2 kg
[2018-06-17 06:13] VITALS: Ht 185.4 cm; Wt 140.2 kg
[2018-06-17 07:16] LABS: PLATELET COUNT 293 x10^3mcL (130-400)
[2018-06-17 07:20] LABS: CALCIUM 9.2 mg/dL (8.5-10.1); CARBON DIOXIDE 27.4 mmol/L (21-32); POTASSIUM SERUM 3.9 mmol/L (3.5-5.1)
[2018-06-17 07:22] LABS: RED CELL DISTRIBUTION WIDTH 15.4 % (11.5-14.5)
[2018-06-17 07:25] LABS: ALBUMIN 3.6 g/dL (3.4-5.0); BILIRUBIN TOTAL 0.56 mg/dL (0.20-1.00)
[2018-06-17 08:23] VITALS: BP 110/70
== END 2018-06-17 08:23 | disposition home or self-care (01) ==
LOC: ED 06:09
PROVIDERS: Emergency Medicine
DX: K52.9 Noninfective gastroenteritis and colitis, unspecified (principal); I10 Essential (primary) hypertension; E11.9 Type 2 diabetes mellitus without complications; E03.9 Hypothyroidism, unspecified; M19.90 Unspecified osteoarthritis, unspecified site
CPT/HCPCS: 82962; J0780; J1885; J3010; Q0162

== ENCOUNTER 2018-08-28 02:17 | Inpatient (IN) | payer OTHER ==
[~2018-08-28] VITALS: Ht 185.4 cm; Wt 140.6 kg
[2018-08-28 02:26] VITALS: Ht 185.4 cm; Wt 140.6 kg
--- NOTE | 2018-08-28 02:42 | NUR ---
PT CAME IN FROM HOME COMPLAINING OF GENERALIZED ABD PAIN. PT MOANING IN PAIN, RATING IT A 10/10. PT STATES THAT IT IS ACCOMPANIED BY N/V. HAS HISTORY OF GASTROPARESIS. NO COMPLAINTS OF DIARRHEA. HAS BEEN EXPERIENCING SYMPTOMS FOR 2-3 DAYS.
--- NOTE | 2018-08-28 02:50 | NUR ---
DR. RAI NOTIFIED OF CRITICAL LA LEVEL.
[2018-08-28 03:08] LABS: BASOPHIL % 1.2 % (0-2); PLATELET COUNT 310 x10^3mcL (130-400)
[2018-08-28 03:12] LABS: RED CELL DISTRIBUTION WIDTH 14.9 % (11.5-14.5)
[2018-08-28 03:27] LABS: CALCIUM 10.2 mg/dL (8.5-10.1); CARBON DIOXIDE 17.7 mmol/L (21-32); CHLORIDE SERUM 107 mmol/L (98-107); CREATININE SERUM 2.4 mg/dL (0.7-1.3); GFR1 30 mL/min; GLUCOSE SERUM 224 mg/dL (74-106); POTASSIUM SERUM 3.8 mmol/L (3.5-5.1); SODIUM SERUM 146 mmol/L (136-145)
[2018-08-28 03:32] LABS: ALBUMIN 4.3 g/dL (3.4-5.0); ALKALINE PHOSPHATASE 90 U/L (46-116); ALT/SGPT 24 U/L (16-63); AST/SGOT 38 U/L (15-37); BILIRUBIN TOTAL 1.12 mg/dL (0.20-1.00); LIPASE 184 IU/L (73-393)
[2018-08-28 03:33] LABS: TOTAL PROTEIN, SERUM 9.4 g/dL (6.4-8.2)
--- NOTE | 2018-08-28 04:00 | NUR ---
AFTER PROVIDING PATIENT WITH ATIVAN AND KETAMINE PER DR. LIU, PT APPEARS TO BE TALKING IN HIS SLEEP ABOUT TELEVISIONS. I THEN WOKE HIM UP, ABLE TO ANSWER ALL ORIENTATION QUESTIONS. PT STATED THAT HIS PAIN FEELS A LOT BETTER THEN WHEN HE CAME IN.
[2018-08-28 04:49] LABS: UA SPECIFIC GRAVITY 1.015 (1.005-1.035); microscopic required? YES; urine erythrocyte 2+ (NEGATIVE)
--- NOTE | 2018-08-28 04:49 | NUR ---
PT'S PAIN CONTINUES TO BE 10/10. PT STATES THAT MORPHINE IS THE ONLY MEDICATION THAT HELPS HIS PAIN GO AWAY. TOLD PT THAT ORDERED KETAMINE, AND THAT IT WILL HELP DECREASE THE PAIN IN THE SAME MANNER. MADE DR AWARE OF PAIN LEVEL, AND INCREASED BLOOD PRESSURE. SEE VITAL SIGNS FOR DETAILS.
--- NOTE | 2018-08-28 05:36 | NUR ---
DR. RAI ORDERED ATIVAN. I DECIDED TO HOLD DUE TO PT'S MENTAL STATUS CHANGE AFTER FIRST DOSE OF ATIVAN WAS ADMINISTERED. DO NOT WISH FOR PT TO BECOME ALTERED .
--- NOTE | 2018-08-28 05:45 | NUR ---
GAVE REPORT TO HAILEY GRAJEDA.
--- NOTE | 2018-08-28 06:25 | NUR ---
TOLD DR. RAI THAT I WAS SKIPPING ATIVAN DOSES DUE TO PT BECOMING SLIGHTLY ALTERED AFTER FIRST DOSE WAS ADMINISTERED. PER DR. RAI ONLY GIVE 1 MG TO PT TO BRING DOWN HIGHLY ELEVATED BP.
--- NOTE | 2018-08-28 06:45 | NUR ---
PER DR. RAI, PT GOOD TO GO UP TO MED SURG.
--- NOTE | 2018-08-28 07:00 | NUR ---
ALERT AND ORIENTED. BREATHING FREELY ON RA. ADMITTED WITH GASTROPARESIS AND ABD PAIN. HAS BEEN HAVING N/V AND SHARP ABD PAIN X 1 WEEK. WATERY EMESIS WHEN GETTING TO MED/SURG FLOOR. IV TO LEFT FA NON PATENT. NKA. HX HTN,DM,ARTHRITIS,GASTRITIS, COLITIS, HYPOTHYROID. INDEPENDENT W ADL'S. DOES NOT USE ANY ASSISTIVE DEVICES. BREATHING FREELY ON RA. ABD PAIN 10/10 SHARP. ORIENTED. TO ROOM AND DEVICES. CALL LIGHT WITHIN REACH. SKIN INTACT.
--- NOTE | 2018-08-28 07:04 | NUR ---
RECEIVED PT FROM ER. PT AA&O X4. IV TO THE LEFT AC. DRESSING IS CLEAN, DRY, AND INTACT. SIDE RAILS UP. CALL LIGHT WITHIN REACH. RESTING. WILL ENDORSE TO THE DAY SHIFT RN.
[2018-08-28 11:16] VITALS: BP 160/92
[2018-08-28] MEDS ORDERED: ERY250 PO (15:44)
[2018-08-28] MEDS ORDERED: METOCLOPRAMIDE10 M2 PO (15:44)
[2018-08-28 17:50] VITALS: BP 149/106
--- NOTE | 2018-08-28 19:26 | NUR ---
INTERMITTENT ABD PAIN AND NUASEA. BREATHING FREELY ON RA. DOZING OF AND ON. NS INFUSING 80 CC HOUR. POOR APPETITE PT GOT NAUSEOUS AT DINNER TIME. ADMIN ZOFRAN AND ULTRAM. CALL LIGHT WITHIN REACH.
--- NOTE | 2018-08-28 19:49 | NUR ---
PT RECIEVED AAO REG RESP NO SOB V/S STABLE,KEPT CLEAN AND DRY TO TOUCH,IV INFUSING WELL WITH THE SITE PATENT AND INTACT,MADE COMFORTABLE IN BED,V/S STABLE,ABDO IS SOFT WITH ACTIVE BOWEL SOUNDS,CALL LIGHT EASY REACHED AND WILL CONTINUE TO MONITOR.
[2018-08-28 21:20] VITALS: BP 91/54
[2018-08-28 23:59] VITALS: BP 87/49
--- NOTE | 2018-08-29 | NUR ---
ASSIGNED NURSE INSTRUCTED TO RE-CHECK PATIENT BP.
--- NOTE | 2018-08-29 00:05 | NUR ---
BP CHECKED 87/49 MAP 68,PT ASYSTOMATIC AND WAS SLEEPING AT THIS TIME,NO DIZZINESS,PT BEING INSTRUCTED TO CALL FOR HELP WHEN TRYING TO GET OOB,BED IN THE LOW POSITION AND LOCKED AND WILL CONTINUE TO MONITOR.
--- NOTE | 2018-08-29 00:40 | NUR ---
PT SLEEPING AT THIS TIME,ASYSTOMATIC AND WILL CONTINUE TO MONITOR.
[2018-08-29 02:03] VITALS: BP 96/67
[2018-08-29 05:44] VITALS: BP 107/78
[2018-08-29 06:25] LABS: BASOPHIL % 0.3 % (0-2); PLATELET COUNT 279 x10^3mcL (130-400)
[2018-08-29 06:31] LABS: RED CELL DISTRIBUTION WIDTH 15.5 % (11.5-14.5)
--- NOTE | 2018-08-29 06:47 | NUR ---
PT HAD A RESTINGN NIGHT NO CHANGE AT THIS TIME,WILL CONTINUE TO MONITOR.
--- NOTE | 2018-08-29 07:15 | NUR ---
ALERT AND ORIENTED. BREATHING FREELY ON RA. DENIES ANY NAUSEA OR ABD PAIN. PT ASKING ABOUT WHEN HE WILL BE DC'D. NS INFUSING 80 CC HOUR TO LEFT HAND. TAKING BARBARA-TABS ORAL ABX. INDEPENDENT WITH ADL'S. CALL LIGHT WITHIN REACH.
[2018-08-29 07:30] LABS: CALCIUM 8.9 mg/dL (8.5-10.1); CARBON DIOXIDE 23.9 mmol/L (21-32); CREATININE SERUM 2.6 mg/dL (0.7-1.3); MAGNESIUM 2.1 mg/dL (1.8-2.4); POTASSIUM SERUM 4.6 mmol/L (3.5-5.1)
[2018-08-29 09:35] VITALS: BP 121/71
[2018-08-29 10:00] VITALS: BP 121/71
--- NOTE | 2018-08-29 15:45 | NUR ---
DC'D TO HOME. PRESCRIPTIONS GIVEN. F/U APPOINMTNET GIVEN. IV DC'D NO TELE. ALL DC INSTRUCTIONS REVIEWED WITH AND SIGNED BY PT.
== END 2018-08-29 15:53 | disposition home or self-care (01) | DRG 48 ==
LOC: ED 02:17 → MU 05:26
PROVIDERS: Emergency Medicine; ADMIT Internal Medicine Pulmonary Disease
DX: E11.43 Type 2 diabetes mellitus with diabetic autonomic (poly)neuropathy (principal); N17.9 Acute kidney failure, unspecified; E11.22 Type 2 diabetes mellitus with diabetic chronic kidney disease; E11.65 Type 2 diabetes mellitus with hyperglycemia; E87.0 Hyperosmolality and hypernatremia; K31.84 Gastroparesis; E03.9 Hypothyroidism, unspecified; M10.9 Gout, unspecified; M19.90 Unspecified osteoarthritis, unspecified site; E86.0 Dehydration; E86.9 Volume depletion, unspecified; N18.9 Chronic kidney disease, unspecified; I12.9 Hypertensive chronic kidney disease with stage 1 through stage 4 chronic kidney disease, or unspecified chronic kidney disease
CPT/HCPCS: 82962; J0360; J1644; J1815; J1885; J2060; J2405; J2765; J3490; J7030; J7042; Q0092

== ENCOUNTER 2018-10-22 19:19 | Observation (INO) | payer OTHER ==
[~2018-10-22] VITALS: Ht 185.4 cm; Wt 142.0 kg
[~2018-10-22 19:19] MED LIST changes: +ERY250 PO
[2018-10-22 19:31] VITALS: Ht 185.4 cm; Wt 142.0 kg
--- NOTE | 2018-10-22 19:41 | NUR ---
PT C/O ABD PAIN AND STATES HE'S HAD GASTROPARESIS PREVIOUSLY THAT FELT LIKE THIS. REPORTS HAVING VOMITING AND DIARRHEA X1 WEEK W/ ABD PAIN 10/10 SHARP PAIN ON FLANK SIDE OF ABD. ABD SOUNDS DIM, ROUND AND TENDER ALL QUADRANTS. PT REPORTS HX HTN, DM. VS HR 113, 02 SAT 99%, BP 165/113 (132). PT REPORTS FOR HTN MEDICATION BUT HASN'T TAKEN IT.
[2018-10-22 20:24] LABS: BASOPHIL % 0.7 % (0-2); PLATELET COUNT 254 x10^3mcL (130-400); RED CELL DISTRIBUTION WIDTH 14.1 % (11.5-14.5)
[2018-10-22 20:58] LABS: CALCIUM 10.7 mg/dL (8.5-10.1); CHLORIDE SERUM 102 mmol/L (98-107); CREATININE SERUM 2.3 mg/dL (0.7-1.3); GFR1 31 mL/min; GLUCOSE SERUM 182 mg/dL (74-106); POTASSIUM SERUM 3.5 mmol/L (3.5-5.1); SODIUM SERUM 140 mmol/L (136-145)
--- NOTE | 2018-10-22 21:00 | NUR ---
PT W/ DARK COLOR EMESIS REPORTED TO DOCTOR FREDI. 200CC NOTED.
[2018-10-22 21:02] LABS: ALBUMIN 4.5 g/dL (3.4-5.0); ALKALINE PHOSPHATASE 99 U/L (46-116); ALT/SGPT 39 U/L (16-63); AST/SGOT 39 U/L (15-37); LIPASE 218 IU/L (73-393)
[2018-10-22 21:11] LABS: TOTAL PROTEIN, SERUM 9.7 g/dL (6.4-8.2)
--- NOTE | 2018-10-22 22:03 | NUR ---
WITNESSED PT EMESIS OF DARK BROWN SUBSTANCE. 100CC DARK BROWN EMESIS DR RAI AWARE. BP AWARE.
[2018-10-23] VITALS (12 sets, daily range): BP systolic 92–204; BP diastolic 22–129
[2018-10-23 00:09] LABS: microscopic required? YES; urine erythrocyte 2+ (NEGATIVE)
--- NOTE | 2018-10-23 00:16 | NUR ---
REPORT GIVEN TO EWA. ALL CONCERNS ADDRESSED.
--- NOTE | 2018-10-23 00:35 | NUR ---
PT TRANSFERRED TO TELE FLOOR ACCOMPANIED BY NURSE AND EMT. PT CONNECTED TO MONITOR UPON TRANSFER. NO S/S OF DISTRESS. RESP E/U. IV SITE PATENT PT DENIES PAIN OR DISCOMFORT TO SITE. NO SIGNS OF INFILTRATION.
[2018-10-23 00:37] LABS: AMPHETAMINE QUAL UR NONE DETECTED (See below)
--- NOTE | 2018-10-23 00:49 | NUR ---
RECEIVED PT FROM ER. PT ADMIT FOR GASTROPARESIS, PT IS A/O X4, VERBAL RESPONSIVE, ABLE TO TELL WHAT HE NEEDS. LUNG SOUND CLEAR BILATERAL, NO COUGH, NO SOB, PT IS ON TELE 20, ST, HR BETWEEN 98 TO 110, DENY ANY CHEST PAIN AT THIS MOMENT, BOWEL SOUND ABSENT ALL 4 QUADRANTS, NO DISTENTION, BUT PT C/O ABD PAIN ALL 4 QUADRANT AND RADIATE TO BACK, PEDAL PULSE PRESENT BOTH FEET, NO EDEMA, IV AT RIGHT HAND, NO LEAKING, NO INFILTRATION. ALL ADLS ASSIST, ALL NEED MET, CALL LIGHT IN REACH, WILL CONTINUE TO MONITOR.
--- NOTE | 2018-10-23 00:59 | NUR ---
C/O ABDOMINAL APIN RADIATING TO THE BACK ON SCALE 6/10, DESPITE PAIN MEDICATION WAS GIVEN AT ER. PT ASKING FOR SLEEPING PILL/ANXIETY PILL. AMBIEN 5MG PO FOR SLEEP.ATIVAN 1MG PO FOR ANXIETY GIVEN PRN MEDICATION. WILL CONTINUE TO MONITOR.
--- NOTE | 2018-10-23 00:59 | NUR ---
C/O ABDOMINAL APIN RADIATING TO THE BACK 86/10, ASKING MEDICATION FOR SLEEP/ANXIETY. AMBUEN 5MG PO/ATIVAN 1MG PO PRN MEDICATION. VOMITED X1 DARK BROWNUISH SUBSTANCE IN MODERATE AMOUNT. ZOFRAN 4MG IPV PRN MEDICATION. ERYTHROMYCIN 500MG PO NOT GIVEN AT THIS TIME, NOT AVAILABLE IN [facility], DR VIVAS WAS PAGED AWAITNG FOR RETURN CALL,
--- NOTE | 2018-10-23 01:00 | NUR ---
HAD EPISODE OF EMESIS X 1, DARK BROWNISH IN MODERATE AMOUNT. ZOFRAN 4MG IVP PRN MEDICATION. GOOD ORAL CARE RENDERED.
--- NOTE | 2018-10-23 02:10 | NUR ---
DR VIVAS WAS PAGED C/O KASSIE , PT STILL C/O PAIN, ULTRAMNOT WORKINGM PT VOMITED, PREFERS IV MEDS FRO PAIN, BP STILL ELEVATED 189/107, ENALAPRILAT NOT WORKING .
--- NOTE | 2018-10-23 02:18 | NUR ---
VS RECHECKED HQ=523/107 IUH=844, R=20/MIN, HR=00/MIN, T=98.4, O2 OMJ=564% AT ROOM AIR. IV SITE AT THE RIGHT HAND INTACT AND PATENT IVF INFUSING WELL AT 150ML/HR ORDERED. CALL LIGHT WITHIN REACH. BED IN LOWEST POSITION FOR SAFETY.
--- NOTE | 2018-10-23 03:13 | NUR ---
STILL WAITING FOR DR VIVAS/ASSOCIATE FOR CALL BACK. PT APAPRENTLY ASLEEP AT THIS TIME.
--- NOTE | 2018-10-23 04:00 | NUR ---
DR VIVAS NEVER RETURN THE CALL. SAMUEL WILL PAGE AGAIN.
--- NOTE | 2018-10-23 04:20 | NUR ---
.DR VIVAS CALLED BACK, MADE AWARE OF ANTIHYPERTENSIVE MEDS NOT WORKING, PAINMMEDS ORALLY NOT WORKING FOR THE PT , VOMITED X2 COFFEE GOUND EMESIS, LACTIC ACID 2ND RESULT 2.5, IST=2.4, GAVE NEW ORDERS , NOTED AND AWAITNG PHARMACY TO VERIFY ALL ORDERS
--- NOTE | 2018-10-23 04:55 | NUR ---
HYDRALAZINE 10MGIVP/DILAUDID 1MG IV FOR SEVERE PAIN. WILL CONTINUE TO MONITOR.
[2018-10-23 06:07] LABS: BASOPHIL % 0.2 % (0-2); PLATELET COUNT 249 x10^3mcL (130-400); RED CELL DISTRIBUTION WIDTH 13.8 % (11.5-14.5)
--- NOTE | 2018-10-23 06:54 | NUR ---
LATES BP TAKEN 124/73, PAIN LEVEL AT THIS TIME 09/13. HRI NOT GIVEN PT REFUSED, STATED PT STILL VOMITING . ALL NEEDS ATTENDED.
[2018-10-23 06:55] LABS: ALBUMIN 3.8 g/dL (3.4-5.0); BILIRUBIN TOTAL 0.8 mg/dL (0.20-1.00); CALCIUM 9.2 mg/dL (8.5-10.1); CARBON DIOXIDE 19.7 mmol/L (21-32); CREATININE SERUM 1.9 mg/dL (0.7-1.3); MAGNESIUM 1.7 mg/dL (1.8-2.4); POTASSIUM SERUM 3.6 mmol/L (3.5-5.1); TOTAL PROTEIN, SERUM 8.8 g/dL (6.4-8.2)
--- NOTE | 2018-10-23 07:05 | NUR ---
RECEIVED PT FROM URIEL MCNEIL. PT FOUND RESTING IN BED WITH BOTH EYES CLOSED. NO S/S OF ACUTE DISTRESS. NO N/V AT THIS TIME. RR EVEN/UNLABORED. CHEST EXPANSION SYMMETRICAL. NSR WITH ELEVATED T WAVE ON TELE 20. NO S/S OF CHEST PAIN. IV WNL TO R HAND, NO REDNESS, NO SWELLING, NO INFILTRATION. PATENT AND FLUSHES WELL. IV FLUIDS FLOWING. BED IN LOW POSITION. CALL LIGHT WITHIN REACH. SIDE RAILS UP X2. WILL CONTINUE TO MONITOR.
--- NOTE | 2018-10-23 12:20 | NUR ---
PT LAYING IN BED. AA/OX4. DROWSY BUT EASILY AROUSABLE. DENIES ABD. PAIN. NO N/V. NO SOB ON ROOM AIR. NO COMPLAINT OF PAIN. BP ELEVATED. 175/104, BP MEDICATION GIVEN PER ORDER, SEE SEP. NO PIERRE. NO DIZZINESS. NO CHEST PAIN. NO S/S OF ACUTE DISTERSS. NO TREMORS. BED IN LOW POSITION. CALL LIGHT WITHIN REACH. WILL CONT. TO MONITOR.
--- NOTE | 2018-10-23 13:13 | NUR ---
Initial Nutrition Assessment- 234T/B TONJA WICK IA HR Dx: gastroparesis PMHx: HTN, DM, thyroid, colitis, gout, arthritis, gastroparesis, hypothyroidism PSHx: none documented Labs: (10/23) BG 252H, BUN 19H, CREAT 1.9H, MG 1.7L Meds: D50%, humulin, Lopressor, reglan, zofran Diet: CCHO PO Intake: poor Ht: 185.42 cm (73") Wt: 141.9 kg (312#) BMI: 41.3 kg/m2 (morbid obesity) IBW: 184# (84 kg) %IBW: 169 UBW: ask pt. Age: 58/M Food Allergies: NKFA Skin: intact Marko: 23 Edema: none GI: last BM: 10/21 Per H&P, pt is a 58 year old male with a history of gastroparesis who presents with acute on chronic diffuse abdominal pain and nonbloody/nonbilious emesis for 1 week. States he has not eaten for 2-3 days. Ran out of his reglan. pain is 10/10. denies fever, chills, diarrhea, urinary symptoms. Patient also stated that he is unable to give any medications down. RDN visit (10/23): Pt was awake and said that he has some nausea and vomiting. His appetite is poor and said that he has had unintentional wt loss but doesn't know in pounds. Pt said he would be willing to drink a nutritional supplement along with his meals. Problem with: N: yes V: yes D: no C: yes Problems with: Chewing: no Swallowing: no Current appetite: poor Recent wt change: unknown %wt change: unknown Vitamin/Supplement use: vitamin C Special diet at home: Regular Physical activity: unknown Education: no diet education given at this time Estimated Nutritional Needs Based on ideal body weight 84 kg Energy: 7624-4592 kcal/d (25-30 kcal/kg-maintenance) Protein: 84-100 g/d (1.0-1.2 g/kg)-maintenance and preservation of lean body mass Fluid: 6720-4243 ml/d (1 ml/kcal-fluid balance) or per doctor Nutrition Diagnosis 1. Inadequate oral intake related to nausea/vomiting as evidenced by self-reported poor PO. Intervention 1.Continue with CCHO diet. 2. Recommend Glucerna shake BID Monitor/Evaluate Goal: PO intake at least 75% of estimated needs Monitor: PO intake, Labs, GI function F/U in 3-5 days as moderate risk
--- NOTE | 2018-10-23 13:13 | NUR ---
1.Continue with CCHO diet. 2. Recommend Glucerna shake BID
--- NOTE | 2018-10-23 18:47 | NUR ---
PT HAD INCONTINENT EPISODE X1. BM X1. AMBULATORY TO RESTROOM. GAIT STEADY. PT PERFORMED PERICARE INDEPENDENTLY. LINEN CHANGED. NO S/S OF ACUTE DISTRESS. NO SOB ON ROOM AIR. NO COMPLAINT OF PAIN. NO N/V. NO CHEST PAIN. IV WNL, IV FLUIDS FLOWING. BED IN LOW POSITION. CALL LIGHT WITHIN REACH. WILL ENDORSE TO ONCOMING SHIFT.
--- NOTE | 2018-10-23 19:18 | NUR ---
RECEIVED PT FROM PREVIOUS SHIFT NURSE. PT AOX4. DENIES PIERRE/DIZZINESS. DENIES CP/PRESSURE. LUNG SOUNDS CLEAR, ON RA. DENIES SOB. IV TO R. HAND, INTACT AND PATENT. BED IN LOWEST POSITION. CALL LIGHT WITHIN REACH. WILL CONTINUE TO MONITOR.
[2018-10-24] VITALS (7 sets, daily range): BP systolic 96–185; BP diastolic 58–118
--- NOTE | 2018-10-24 01:36 | NUR ---
PT RESTING IN BED. RR EVEN AND UNLABORED. NO ACUTE DISTRESS NOTED. CALL LIGHT WITHIN REACH. BED IN LOWEST POSITION. WILL CONTINUE TO MONITOR.
[2018-10-24 06:22] LABS: BASOPHIL % 0.5 % (0-2); PLATELET COUNT 207 x10^3mcL (130-400)
[2018-10-24 07:41] LABS: ALBUMIN 3.2 g/dL (3.4-5.0); BILIRUBIN TOTAL 0.6 mg/dL (0.20-1.00); CALCIUM 8.5 mg/dL (8.5-10.1); CARBON DIOXIDE 27.1 mmol/L (21-32); CREATININE SERUM 2.6 mg/dL (0.7-1.3); MAGNESIUM 1.9 mg/dL (1.8-2.4); TOTAL PROTEIN, SERUM 7.3 g/dL (6.4-8.2)
--- NOTE | 2018-10-24 07:50 | NUR ---
SEEN SITTING UP IN BED HAVING BREAKFAST, NO RESP DISTRESS NOTED ON ROOM AIR, DENIES PAIN OR NAUSEA, BRP, LR AT 100ML/HR INFUSING WELL TO RT HAND IV SITE, PLAN OF CARE DISCUSSED, CALL LIGHT PLACED WITHIN EASY REACH, SIDERAILS UP X2.
--- NOTE | 2018-10-24 09:04 | NUR ---
STATED FEELING BETTER TODAY. DENIES ABDOMINAL PAIN AT THIS TIME.
--- NOTE | 2018-10-24 15:49 | NUR ---
SEEN BY DOCTOR LEDEZMA AT BEDSIDE. PATIENT STATED THAT " I DON'T FEEL GOOD" STATED HAVING PAIN AND STARTED THROWING UP. STATED I DID NOT EAT LUNCH. FSBS =165. BP 185/110(DDW=884), HR 87, O2SAT 100% ON ROOM AIR. VASOTEC 2.5MG IVP SLOWLY GIVEN. WILL CONTINUE TO MONITOR.
--- NOTE | 2018-10-24 15:55 | NUR ---
SEEN RESTING WITH EYES CLOSED, NO ANY DISTRESS NOTED, O2 2LPM MAINTAINED, O2SAT 100%, BP 168/118, HR 88. DENIES PAIN. WILL CONTINUE TO MONITOR.
--- NOTE | 2018-10-24 19:05 | NUR ---
RECEIVED PT FROM PREVIOUS SHIFT NURSE. PT AOX4. DENIES PIERRE/DIZZINESS AT THIS TIME. TELE #20, HR 99, SR WITH FIRST DEGREE AVB. DENIES CP/PRESSURE. PULSES PALPABLE, NO EDEMA. LUNG SOUNDS CLEAR, ON RA. DENIES SOB/DIFFICULTY BREATHING. BOWEL SOUNDS ACTIVE. VOIDS FREELY. GEN WEAKNESS. AMBULATORY. SKIN INTACT. IV TO R. HAND, INTACT AND PATENT. BED IN LOWEST POSITION. CALL LIGHT WITHIN REACH. WILL CONTINUE TO MONITOR.
--- NOTE | 2018-10-24 19:18 | NUR ---
PT LAYING IN BED, CRYING C/O 10/ ABD PAIN. MEDICATED PER EMAR.
--- NOTE | 2018-10-24 21:27 | NUR ---
PT C/O FEELING ANXIOUS MEDICATED PER EMAR.
--- NOTE | 2018-10-25 00:21 | NUR ---
PT C/O ABD PAIN 02/13, MEDICATED PER EMAR.
--- NOTE | 2018-10-25 05:42 | NUR ---
PT C/O 01/13 ABD PAIN. MEDICATED PER EMAR.
[2018-10-25 06:17] VITALS: BP 96/64
[2018-10-25 06:54] LABS: CALCIUM 8.7 mg/dL (8.5-10.1); CARBON DIOXIDE 26.5 mmol/L (21-32); POTASSIUM SERUM 4.2 mmol/L (3.5-5.1)
--- NOTE | 2018-10-25 07:24 | NUR ---
REPORT TAKEN FROM SHOP STEWARD NURSE AT THE BEDSIDE, PT RESTING AT THIS TIME, CHEST RISE AND FALL OBSERVED, WILL COMPLETE ASSESSMENT IN PT CHART.
[2018-10-25 07:43] VITALS: BP 118/78
--- NOTE | 2018-10-25 10:18 | NUR ---
PT RESTING COMFORTABLY AT THIS TIME, NO CHANGE IN ABD PAIN RIGHT NOW, WILL CONTINUE TO MONITOR.
[2018-10-25 14:51] VITALS: BP 118/78
--- NOTE | 2018-10-25 15:34 | NUR ---
PT REPORTED THAT HE WAS TOLD BY THE DOCTOR THAT HE WOULD BE LEAVING THIS AFTERNOON. DR. LEDEZMA PUT IN DISCHARGE ORDERS, BUT DID NOT COMPLETE THE DISCHARGE SUMMARY, AND PUT IN ORDERS FOR LABS TO BE DRAWN TOMORROW MORNING. I CALLED [facility] WHO SAID THEY WOULD PAGE THE DOCTOR. PT ADVISED THAT DISCHARGE ORDERS HAVE NOT BEEN COMPLETED AND WE WILL HAVE TO WAIT FOR COMPLETE ORDERS. PT VERBALIZED UNDERSTANDING.
--- NOTE | 2018-10-25 16:23 | NUR ---
PT DC'D PER PROVIDER ORDER, IV DC'D FROM RIGHT HAND WITH CATH INTACT, AND SITE WRAPPED WITH GUAZE AND COBAN. PT TOLERATED WELL. PT TELE # 10 REMOVED AND TAKEN BACK TO [place] STATION. PT TAKEN TO DICHARGE OFFICE VIA WHEELCHAIR IN NAD.
== END 2018-10-25 16:20 | disposition home or self-care (01) | DRG 48 ==
LOC: ED 19:19 → DU 23:22
PROVIDERS: Emergency Medicine; Internal Medicine Pulmonary Disease; ADMIT Internal Medicine Pulmonary Disease
DX: E11.43 Type 2 diabetes mellitus with diabetic autonomic (poly)neuropathy (principal); N17.0 Acute kidney failure with tubular necrosis; E87.2 Acidosis; E11.65 Type 2 diabetes mellitus with hyperglycemia; Z68.41 Body mass index [BMI] 40.0-44.9, adult; K31.84 Gastroparesis; E86.0 Dehydration; R11.2 Nausea with vomiting, unspecified; Z79.4 Long term (current) use of insulin; Z91.14 Patient's other noncompliance with medication regimen
CPT/HCPCS: 82962; G0378; J0360; J1170; J2060; J2405; J2550; J2765; J3490; J7030; J7120; Q0092

== ENCOUNTER 2019-04-08 17:40 | Inpatient (IN) | payer OTHER ==
[~2019-04-08] VITALS: Ht 185.4 cm; Wt 144.7 kg
[2019-04-08 17:44] VITALS: Ht 185.4 cm; Wt 144.7 kg
[2019-04-08 19:12] LABS: BASOPHIL % 0.7 % (0-2); PLATELET COUNT 264 x10^3mcL (130-400); RED CELL DISTRIBUTION WIDTH 15.4 % (11.5-14.5)
[2019-04-08 19:18] LABS: CARBON DIOXIDE 16.7 mmol/L (21-32); CHLORIDE SERUM 106 mmol/L (98-107); CREATININE SERUM 2.4 mg/dL (0.7-1.3); GFR1 30 mL/min; GLUCOSE SERUM 171 mg/dL (74-106); POTASSIUM SERUM 3.6 mmol/L (3.5-5.1); SODIUM SERUM 144 mmol/L (136-145)
[2019-04-08 19:23] LABS: ALKALINE PHOSPHATASE 115 U/L (46-116); ALT/SGPT 56 U/L (16-63); AST/SGOT 47 U/L (15-37); LIPASE 132 IU/L (73-393)
[2019-04-08 20:59] LABS: UA SPECIFIC GRAVITY 1.015 (1.005-1.035); microscopic required? YES; urine erythrocyte 2+ (NEGATIVE)
[2019-04-08 21:52] LABS: AMYLASE 58 U/L (25-115); LIPASE 122 IU/L (73-393)
[2019-04-08 22:56] VITALS: BP 195/105
[2019-04-09 02:00] VITALS: BP 152/90
[2019-04-09 05:57] VITALS: BP 189/118
[2019-04-09 07:10] LABS: CALCIUM 9.1 mg/dL (8.5-10.1); CARBON DIOXIDE 21.6 mmol/L (21-32); CREATININE SERUM 1.9 mg/dL (0.7-1.3); POTASSIUM SERUM 4.5 mmol/L (3.5-5.1)
[2019-04-09 07:20] LABS: BASOPHIL % 0.2 % (0-2); PLATELET COUNT 267 x10^3mcL (130-400)
[2019-04-09 07:25] LABS: RED CELL DISTRIBUTION WIDTH 15.6 % (11.5-14.5)
[2019-04-09 07:30] VITALS: BP 168/110
[2019-04-09] MEDS ORDERED: ZIA10 PO (09:34)
[2019-04-09] MEDS ORDERED: LANTUS SOLOS100 U/M1 SQ (09:34)
[2019-04-09] MEDS ORDERED: LOSARTAN POTASS50 M1 PO (09:37)
[2019-04-09] MEDS ORDERED: AMITIZA24 MC1 PO (09:37)
[2019-04-09] MEDS ORDERED: SYNTHROID0.2 MG PO (09:37)
[2019-04-09] MEDS ORDERED: REG10 PO (09:37)
[2019-04-09] MEDS ORDERED: ASPIR 8181 MG PO (09:38)
[2019-04-09] MEDS ORDERED: LIPI20 PO (09:38)
[2019-04-09] MEDS ORDERED: BENZONATATE200 MG PO (09:39)
[2019-04-09] MEDS ORDERED: ZOF4 PO (09:39)
[2019-04-09] MEDS ORDERED: ZYRTEC10 MG PO (09:39)
[2019-04-09] MEDS ORDERED: COL100 PO (09:40)
[2019-04-09] MEDS ORDERED: SIMETHICONE125 MG PO (09:40)
[2019-04-09 16:43] VITALS: BP 190/115
[2019-04-09 17:56] VITALS: BP 143/96
[2019-04-09 18:24] VITALS: BP 143/96
== END 2019-04-09 19:57 | disposition home or self-care (01) | DRG 48 ==
LOC: ED 17:40 → MU 21:10
PROVIDERS: Emergency Medicine; ADMIT Internal Medicine Pulmonary Disease
DX: E11.43 Type 2 diabetes mellitus with diabetic autonomic (poly)neuropathy (principal); E11.21 Type 2 diabetes mellitus with diabetic nephropathy; E86.0 Dehydration; K31.84 Gastroparesis; E03.9 Hypothyroidism, unspecified; M10.9 Gout, unspecified; I10 Essential (primary) hypertension; E11.65 Type 2 diabetes mellitus with hyperglycemia; Z79.84 Long term (current) use of oral hypoglycemic drugs; Z79.899 Other long term (current) drug therapy; Z68.41 Body mass index [BMI] 40.0-44.9, adult; E66.01 Morbid (severe) obesity due to excess calories
CPT/HCPCS: 82962; G0378; J0360; J1815; J1885; J2060; J2405; J2765; J3480; J3490; J8597

== ENCOUNTER 2020-04-05 20:31 | Inpatient (IN) | payer OTHER ==
[~2020-04-05] VITALS: Ht 185.4 cm; Wt 136.1 kg
[~2020-04-05 20:31] MED LIST changes: +HUMULIN 70/303 ML; +KEFLEX500 M1 PO; +LANTUS SOLOS100 U/M1 SQ; +LASIX20 MG PO; +LIPITOR40 MG PO; +NASAL MIST126 ML; +SIMETHICONE125 MG PO; +SYNTHROID0.2 MG PO; +ZIA10 PO
[2020-04-05 20:45] VITALS: Ht 185.4 cm; Wt 136.1 kg
[2020-04-05 21:09] LABS: BASOPHIL % 0.3 % (0-2); PLATELET COUNT 267 x10^3mcL (130-400); RED CELL DISTRIBUTION WIDTH 14.2 % (11.5-14.5)
[2020-04-05 21:57] LABS: CALCIUM 9.5 mg/dL (8.5-10.1); CARBON DIOXIDE 14.3 mmol/L (21-32); CREATININE SERUM 2.5 mg/dL (0.7-1.3); POTASSIUM SERUM 3.7 mmol/L (3.5-5.1)
[2020-04-05 22:01] LABS: ALBUMIN 3.5 g/dL (3.4-5.0); BILIRUBIN TOTAL 0.54 mg/dL (0.20-1.00)
[2020-04-05 23:59] LABS: UA SPECIFIC GRAVITY 1.015 (1.005-1.035); microscopic required? YES; urine erythrocyte 1+ (NEGATIVE)
[2020-04-06] VITALS (9 sets, daily range): BP systolic 95–201; BP diastolic 58–116
[2020-04-06 07:40] LABS: BASOPHIL % 0.1 % (0-2); PLATELET COUNT 285 x10^3mcL (130-400); RED CELL DISTRIBUTION WIDTH 13.8 % (11.5-14.5)
[2020-04-06 08:08] LABS: CALCIUM 9.3 mg/dL (8.5-10.1); CARBON DIOXIDE 18.8 mmol/L (21-32); CREATININE SERUM 2.2 mg/dL (0.7-1.3); MAGNESIUM 1.7 mg/dL (1.8-2.4); PHOSPHOROUS 3.9 mg/dL (2.5-4.9); POTASSIUM SERUM 4.3 mmol/L (3.5-5.1)
[2020-04-07 05:26] VITALS: BP 134/80
[2020-04-07 08:11] LABS: BASOPHIL % 0.4 % (0-2); PLATELET COUNT 289 x10^3mcL (130-400); RED CELL DISTRIBUTION WIDTH 14.3 % (11.5-14.5)
[2020-04-07 08:29] LABS: CALCIUM 9.2 mg/dL (8.5-10.1); CARBON DIOXIDE 23.1 mmol/L (21-32); PHOSPHOROUS 4.3 mg/dL (2.5-4.9); POTASSIUM SERUM 4.6 mmol/L (3.5-5.1)
[2020-04-07 09:41] VITALS: BP 113/87
[2020-04-07] MEDS ORDERED: ERY250 PO (11:14)
[2020-04-07] MEDS ORDERED: LANTUS SOLOS100 U/M1 SQ (11:14)
[2020-04-07 12:10] VITALS: BP 113/87
== END 2020-04-07 12:37 | disposition home or self-care (01) | DRG 48 ==
LOC: ED 20:31 → DU 23:06
PROVIDERS: Emergency Medicine; ADMIT Hospitalist; ATTEND Hospitalist
DX: E11.43 Type 2 diabetes mellitus with diabetic autonomic (poly)neuropathy (principal); E11.22 Type 2 diabetes mellitus with diabetic chronic kidney disease; E11.621 Type 2 diabetes mellitus with foot ulcer; K31.84 Gastroparesis; E86.0 Dehydration; L97.429 Non-pressure chronic ulcer of left heel and midfoot with unspecified severity; Z20.828 Contact with and (suspected) exposure to other viral communicable diseases; K59.00 Constipation, unspecified; K52.9 Noninfective gastroenteritis and colitis, unspecified; M19.90 Unspecified osteoarthritis, unspecified site; N18.9 Chronic kidney disease, unspecified; I12.9 Hypertensive chronic kidney disease with stage 1 through stage 4 chronic kidney disease, or unspecified chronic kidney disease; M10.9 Gout, unspecified; E03.9 Hypothyroidism, unspecified; Z83.3 Family history of diabetes mellitus; Z82.49 Family history of ischemic heart disease and other diseases of the circulatory system; Z79.899 Other long term (current) drug therapy; Z79.84 Long term (current) use of oral hypoglycemic drugs; Z79.4 Long term (current) use of insulin; Z79.01 Long term (current) use of anticoagulants
CPT/HCPCS: 36600; 82962; G0378; J0360; J1650; J1815; J2270; J2405; J2765; J3010; J3490; J7030; Q0092

== ENCOUNTER 2020-06-16 03:09 | Inpatient (IN) | payer OTHER ==
[2020-06-16] VITALS (7 sets, daily range): BP systolic 96–159; BP diastolic 71–89; Ht 185.4 cm; Wt 167.8 kg
[~2020-06-16] VITALS: Ht 185.4 cm; Wt 167.8 kg
[2020-06-16 04:32] LABS: BASOPHIL % 0.2 % (0.2-1.5); PLATELET COUNT 269 x10^3mcL (152-348)
[2020-06-16 04:54] LABS: BILIRUBIN TOTAL 1.15 mg/dL (0.20-1.00); CALCIUM 8.5 mg/dL (8.5-10.1); CARBON DIOXIDE 18.6 mmol/L (21-32); POTASSIUM SERUM 4.7 mmol/L (3.5-5.1); TOTAL PROTEIN, SERUM 7.4 g/dL (6.4-8.2)
[2020-06-16 05:04] LABS: ALBUMIN 2.2 g/dL (3.4-5.0)
[2020-06-16 05:06] LABS: CREATININE SERUM 6.6 mg/dL (0.7-1.3)
[2020-06-16 05:32] LABS: RED CELL DISTRIBUTION WIDTH 15.4 % (12.1-16.2)
[2020-06-16 15:20] LABS: BILIRUBIN TOTAL 1.1 mg/dL (0.20-1.00); CALCIUM 8.3 mg/dL (8.5-10.1); CARBON DIOXIDE 16.5 mmol/L (21-32); PHOSPHOROUS 3.1 mg/dL (2.5-4.9); POTASSIUM SERUM 4.7 mmol/L (3.5-5.1); TOTAL PROTEIN, SERUM 7.2 g/dL (6.4-8.2)
[2020-06-16 15:23] LABS: ALBUMIN 2.1 g/dL (3.4-5.0)
[2020-06-16 15:25] LABS: CREATININE SERUM 5.8 mg/dL (0.7-1.3)
[2020-06-17] VITALS (12 sets, daily range): BP systolic 75–145; BP diastolic 40–90
[2020-06-17 06:48] LABS: BASOPHIL % 0.3 % (0.2-1.5); PLATELET COUNT 321 x10^3mcL (152-348)
[2020-06-17 07:17] LABS: RED CELL DISTRIBUTION WIDTH 15.9 % (12.1-16.2)
[2020-06-17 12:54] LABS: rbc morphology (normal/abnorm) NORMAL (NORMAL)
[2020-06-17 13:25] LABS: BILIRUBIN TOTAL 1.2 mg/dL (0.20-1.00); CALCIUM 7.9 mg/dL (8.5-10.1); MAGNESIUM 1.9 mg/dL (1.8-2.4); PHOSPHOROUS 3.5 mg/dL (2.5-4.9); POTASSIUM SERUM 4.8 mmol/L (3.5-5.1); TOTAL PROTEIN, SERUM 7.1 g/dL (6.4-8.2)
[2020-06-17 13:27] LABS: ALBUMIN 2.1 g/dL (3.4-5.0); CHOLESTEROL/HDL RATIO 12.8
[2020-06-17 13:28] LABS: CREATININE SERUM 5.9 mg/dL (0.7-1.3)
[2020-06-18] VITALS (15 sets, daily range): BP systolic 85–158; BP diastolic 37–64
[2020-06-18 15:11] LABS: PLATELET COUNT 328 x10^3mcL (152-348)
[2020-06-18 15:23] LABS: RED CELL DISTRIBUTION WIDTH 16.2 % (12.1-16.2)
[2020-06-18 15:57] LABS: ATYPICAL LYMPH 1 %; BAND NEUTROPHIL 15 % (0-10); BASOPHIL 1 % (0-2); METAMYELOCTE 1 % (0-2); MONOCYTE 5 % (0-7); MYELOCYTE 1 % (0-2); SEGMENTED NEUTROPHILS 66 % (37-75)
[2020-06-18 15:58] LABS: PLATELET MORPHOLOGY LARGE PLATELET SEEN
[2020-06-18 15:59] LABS: rbc morphology (normal/abnorm) ABNORMAL (NORMAL)
[2020-06-18 17:20] LABS: BILIRUBIN TOTAL 1.5 mg/dL (0.20-1.00); CALCIUM 8.1 mg/dL (8.5-10.1); CARBON DIOXIDE 12.3 mmol/L (21-32); MAGNESIUM 1.9 mg/dL (1.8-2.4); PHOSPHOROUS 4.1 mg/dL (2.5-4.9); POTASSIUM SERUM 4.8 mmol/L (3.5-5.1)
[2020-06-18 17:53] LABS: ALBUMIN 1.8 g/dL (3.4-5.0); CREATININE SERUM 6.7 mg/dL (0.7-1.3)
[2020-06-19] VITALS (9 sets, daily range): BP systolic 91–148; BP diastolic 36–74
[2020-06-19 09:41] LABS: BASOPHIL % 0.4 % (0.2-1.5); PLATELET COUNT 305 x10^3mcL (152-348)
[2020-06-19 10:23] LABS: RED CELL DISTRIBUTION WIDTH 15.7 % (12.1-16.2)
[2020-06-19 10:24] LABS: rbc morphology (normal/abnorm) NORMAL (NORMAL)
[2020-06-19 10:27] LABS: CALCIUM 7.6 mg/dL (8.5-10.1); CARBON DIOXIDE 21.9 mmol/L (21-32); MAGNESIUM 1.6 mg/dL (1.8-2.4); PHOSPHOROUS 3.3 mg/dL (2.5-4.9); POTASSIUM SERUM 3.5 mmol/L (3.5-5.1); TOTAL PROTEIN, SERUM 6.5 g/dL (6.4-8.2)
[2020-06-19 10:31] LABS: ALBUMIN 1.5 g/dL (3.4-5.0)
[2020-06-20] VITALS: BP 98/47
[2020-06-20 04:00] VITALS: BP 101/50
[2020-06-20 06:03] LABS: BASOPHIL % 0.5 % (0.2-1.5); PLATELET COUNT 314 x10^3mcL (152-348)
[2020-06-20 06:09] LABS: RED CELL DISTRIBUTION WIDTH 15.8 % (12.1-16.2)
[2020-06-20 06:21] LABS: BILIRUBIN TOTAL 2.3 mg/dL (0.20-1.00); CALCIUM 7.9 mg/dL (8.5-10.1); CARBON DIOXIDE 20.4 mmol/L (21-32); MAGNESIUM 1.8 mg/dL (1.8-2.4); PHOSPHOROUS 4.4 mg/dL (2.5-4.9); POTASSIUM SERUM 4.2 mmol/L (3.5-5.1); TOTAL PROTEIN, SERUM 6.7 g/dL (6.4-8.2)
[2020-06-20 06:22] LABS: ALBUMIN 1.5 g/dL (3.4-5.0); CREATININE SERUM 6.1 mg/dL (0.7-1.3)
[2020-06-20 07:30] VITALS: BP 119/60
[2020-06-20 11:30] VITALS: BP 95/52
[2020-06-20 15:30] VITALS: BP 108/59
[2020-06-20 21:30] VITALS: BP 87/48
[2020-06-21 05:32] VITALS: BP 95/52
[2020-06-21 07:25] LABS: BASOPHIL % 0.8 % (0.2-1.5); PLATELET COUNT 293 x10^3mcL (152-348)
[2020-06-21 08:10] LABS: RED CELL DISTRIBUTION WIDTH 16.2 % (12.1-16.2)
[2020-06-21 08:12] VITALS: BP 85/53
[2020-06-21 08:17] LABS: BILIRUBIN TOTAL 1.85 mg/dL (0.20-1.00); CALCIUM 7.6 mg/dL (8.5-10.1); CARBON DIOXIDE 21.9 mmol/L (21-32); PHOSPHOROUS 4.5 mg/dL (2.5-4.9); POTASSIUM SERUM 4.2 mmol/L (3.5-5.1); TOTAL PROTEIN, SERUM 6.8 g/dL (6.4-8.2)
[2020-06-21 08:24] LABS: ALBUMIN 1.3 g/dL (3.4-5.0); CREATININE SERUM 6.7 mg/dL (0.7-1.3)
[2020-06-21 11:20] VITALS: BP 112/56
[2020-06-21 11:37] LABS: rbc morphology (normal/abnorm) NORMAL (NORMAL)
[2020-06-21 16:38] VITALS: BP 87/20
[2020-06-21 17:25] VITALS: BP 118/55
[2020-06-21 20:53] VITALS: BP 109/56
[2020-06-22 05:16] VITALS: BP 118/55
[2020-06-22 13:15] VITALS: BP 88/53
[2020-06-22 14:57] VITALS: BP 143/62
[2020-06-22 17:09] VITALS: BP 123/58
[2020-06-22 21:30] VITALS: BP 159/76
[2020-06-23 06:28] VITALS: BP 157/82
[2020-06-23 07:11] LABS: PLATELET COUNT 303 x10^3mcL (152-348)
[2020-06-23 07:20] LABS: POTASSIUM SERUM 3.6 mmol/L (3.5-5.1)
[2020-06-23 07:32] LABS: RED CELL DISTRIBUTION WIDTH 16.4 % (12.1-16.2)
[2020-06-23 08:11] LABS: BILIRUBIN TOTAL 1.2 mg/dL (0.20-1.00); CALCIUM 7.6 mg/dL (8.5-10.1); CARBON DIOXIDE 24.3 mmol/L (21-32); TOTAL PROTEIN, SERUM 7.3 g/dL (6.4-8.2)
[2020-06-23 08:17] LABS: ALBUMIN 1.6 g/dL (3.4-5.0); CREATININE SERUM 5.9 mg/dL (0.7-1.3)
[2020-06-23 08:41] VITALS: BP 114/78
[2020-06-23 10:36] LABS: BAND NEUTROPHIL 2 % (0-10); MONOCYTE 3 % (0-7); SEGMENTED NEUTROPHILS 76 % (37-75); rbc morphology (normal/abnorm) NORMAL (NORMAL)
[2020-06-23 11:31] VITALS: BP 155/78
[2020-06-23 16:40] VITALS: BP 159/75
[2020-06-23 20:54] VITALS: BP 130/73
[2020-06-24 04:00] VITALS: BP 132/81
[2020-06-24 08:22] LABS: BILIRUBIN TOTAL 1.13 mg/dL (0.20-1.00); CALCIUM 8.2 mg/dL (8.5-10.1); CARBON DIOXIDE 27.9 mmol/L (21-32); POTASSIUM SERUM 3.4 mmol/L (3.5-5.1); TOTAL PROTEIN, SERUM 7.7 g/dL (6.4-8.2)
[2020-06-24 09:14] VITALS: BP 144/89
[2020-06-24 09:53] LABS: BASOPHIL % 0.6 % (0.2-1.5); PLATELET COUNT 288 x10^3mcL (152-348)
[2020-06-24 10:11] LABS: ALBUMIN 1.5 g/dL (3.4-5.0); CREATININE SERUM 4.9 mg/dL (0.7-1.3)
[2020-06-24 10:51] LABS: RED CELL DISTRIBUTION WIDTH 16.3 % (12.1-16.2)
[2020-06-24 12:06] VITALS: BP 126/72
[2020-06-24 16:53] VITALS: BP 147/72
[2020-06-24 20:55] VITALS: BP 179/87
[2020-06-25 05:09] VITALS: BP 126/68
[2020-06-25 06:52] LABS: BASOPHIL % 0.6 % (0.2-1.5); PLATELET COUNT 270 x10^3mcL (152-348)
[2020-06-25 07:07] LABS: BILIRUBIN TOTAL 0.82 mg/dL (0.20-1.00); CALCIUM 8.1 mg/dL (8.5-10.1); CARBON DIOXIDE 25.5 mmol/L (21-32); POTASSIUM SERUM 3.8 mmol/L (3.5-5.1); TOTAL PROTEIN, SERUM 7.5 g/dL (6.4-8.2)
[2020-06-25 07:09] LABS: ALBUMIN 1.4 g/dL (3.4-5.0); CREATININE SERUM 4.6 mg/dL (0.7-1.3)
[2020-06-25 07:27] LABS: RED CELL DISTRIBUTION WIDTH 15.9 % (12.1-16.2)
[2020-06-25 09:06] VITALS: BP 120/69
[2020-06-25 13:45] VITALS: BP 158/73
[2020-06-25 17:33] VITALS: BP 148/76
[2020-06-25 22:39] VITALS: BP 149/91
[2020-06-26 05:49] VITALS: BP 107/65
[2020-06-26 08:07] VITALS: BP 115/72
[2020-06-26 08:16] LABS: BASOPHIL % 0.5 % (0.2-1.5); PLATELET COUNT 289 x10^3mcL (152-348)
[2020-06-26 08:42] LABS: BILIRUBIN TOTAL 0.77 mg/dL (0.20-1.00); CALCIUM 8.2 mg/dL (8.5-10.1); CARBON DIOXIDE 27.5 mmol/L (21-32); CREATININE SERUM 3.5 mg/dL (0.7-1.3); POTASSIUM SERUM 3.3 mmol/L (3.5-5.1); TOTAL PROTEIN, SERUM 7.8 g/dL (6.4-8.2)
[2020-06-26 09:06] LABS: ALBUMIN 1.5 g/dL (3.4-5.0)
[2020-06-26 11:36] LABS: RED CELL DISTRIBUTION WIDTH 16.1 % (12.1-16.2)
[2020-06-26 12:13] VITALS: BP 103/74
[2020-06-26 16:03] VITALS: BP 139/78
[2020-06-26 21:28] VITALS: BP 156/82
[2020-06-27 06:06] VITALS: BP 124/70
[2020-06-27 07:49] LABS: PLATELET COUNT 314 x10^3mcL (152-348)
[2020-06-27 08:16] LABS: BILIRUBIN TOTAL 0.75 mg/dL (0.20-1.00); CALCIUM 8.2 mg/dL (8.5-10.1); CARBON DIOXIDE 26.4 mmol/L (21-32); CREATININE SERUM 3.9 mg/dL (0.7-1.3); POTASSIUM SERUM 3.3 mmol/L (3.5-5.1); TOTAL PROTEIN, SERUM 7.7 g/dL (6.4-8.2)
[2020-06-27 08:32] LABS: ALBUMIN 1.5 g/dL (3.4-5.0)
[2020-06-27 08:42] VITALS: BP 148/72
[2020-06-27 11:34] LABS: RED CELL DISTRIBUTION WIDTH 15.9 % (12.1-16.2)
[2020-06-27 12:01] VITALS: BP 207/86
[2020-06-27 15:43] LABS: SEGMENTED NEUTROPHILS 72 % (37-75)
[2020-06-27 15:44] LABS: MONOCYTE 7 % (0-7); rbc morphology (normal/abnorm) NORMAL (NORMAL)
[2020-06-27 22:24] VITALS: BP 165/83
[2020-06-28 06:14] VITALS: BP 145/76
[2020-06-28 07:16] LABS: PLATELET COUNT 362 x10^3mcL (152-348)
[2020-06-28 07:35] LABS: CALCIUM 8.4 mg/dL (8.5-10.1); CARBON DIOXIDE 25.9 mmol/L (21-32); CREATININE SERUM 3.4 mg/dL (0.7-1.3); PHOSPHOROUS 4.4 mg/dL (2.5-4.9); POTASSIUM SERUM 3.3 mmol/L (3.5-5.1)
[2020-06-28 07:48] LABS: RED CELL DISTRIBUTION WIDTH 15.7 % (12.1-16.2)
[2020-06-28 08:55] VITALS: BP 146/105
[2020-06-28 12:27] LABS: MONOCYTE 5 % (0-7); SEGMENTED NEUTROPHILS 71 % (37-75)
[2020-06-28 12:29] LABS: rbc morphology (normal/abnorm) ABNORMAL (NORMAL)
[2020-06-28 13:02] VITALS: BP 141/72
[2020-06-28 18:41] VITALS: BP 124/88
[2020-06-28 20:41] VITALS: BP 180/90
[2020-06-29] VITALS: BP 139/73
[2020-06-29 05:20] VITALS: BP 132/71
[2020-06-29 08:39] LABS: CALCIUM 8.1 mg/dL (8.5-10.1); CARBON DIOXIDE 24.6 mmol/L (21-32); CREATININE SERUM 3.8 mg/dL (0.7-1.3); POTASSIUM SERUM 4.1 mmol/L (3.5-5.1)
[2020-06-29 17:03] VITALS: BP 121/88
[2020-06-29 21:02] VITALS: BP 135/89
[2020-06-30 05:43] VITALS: BP 94/55
[2020-06-30 08:06] VITALS: BP 144/90
[2020-06-30 08:08] LABS: BASOPHIL % 0.4 % (0.2-1.5)
[2020-06-30 08:12] LABS: CALCIUM 8.2 mg/dL (8.5-10.1); CARBON DIOXIDE 20.1 mmol/L (21-32); PHOSPHOROUS 4.5 mg/dL (2.5-4.9); POTASSIUM SERUM 3.4 mmol/L (3.5-5.1)
[2020-06-30 08:41] LABS: PLATELET COUNT 477 x10^3mcL (152-348); RED CELL DISTRIBUTION WIDTH 15.5 % (12.1-16.2)
[2020-06-30 08:47] LABS: rbc morphology (normal/abnorm) NORMAL (NORMAL)
[2020-06-30 11:55] VITALS: BP 113/58
[2020-06-30] MEDS ORDERED: VANCOMYCIN PER PHARM MC (12:25)
[2020-06-30 13:10] VITALS: BP 113/58
[2020-06-30 16:43] VITALS: BP 110/73
[2020-06-30 20:46] VITALS: BP 127/65
[2020-07-01 05:48] VITALS: BP 97/55
[2020-07-01 09:22] VITALS: BP 94/61
[2020-07-01 13:02] VITALS: BP 100/60
[2020-07-01 16:05] VITALS: BP 133/79
[2020-07-01 21:57] VITALS: BP 138/76
[2020-07-02 06:07] VITALS: BP 108/60
[2020-07-02 07:41] VITALS: BP 107/64
[2020-07-02 12:28] VITALS: BP 120/64
[2020-07-02 14:01] LABS: CALCIUM 7.9 mg/dL (8.5-10.1); CREATININE SERUM 3.8 mg/dL (0.7-1.3)
[2020-07-02 16:20] VITALS: BP 109/64
[2020-07-02 20:18] VITALS: BP 149/80
[2020-07-03 05:27] VITALS: BP 118/66
[2020-07-03 08:34] VITALS: BP 109/54
[2020-07-03 12:04] VITALS: BP 112/59
[2020-07-03 16:51] VITALS: BP 147/104
[2020-07-03 21:49] VITALS: BP 154/101
[2020-07-04 04:55] VITALS: BP 125/56
[2020-07-04 08:28] VITALS: BP 94/60
[2020-07-04 12:40] VITALS: BP 147/78
[2020-07-04 13:05] VITALS: BP 113/58
[2020-07-04 16:59] VITALS: BP 145/75
== END 2020-07-04 18:18 | DRG 710 ==
LOC: ED 03:09 → DU 09:01 → IC 09:01 → IW 06-19 12:38 → IC 06-19 17:46 → IW 06-19 17:48 → IC 06-19 18:34 → DU 06-20 21:45 → MU 06-29 17:43
PROVIDERS: Emergency Medicine; Hospitalist; Internal Medicine; Surgery; ADMIT Hospitalist; ATTEND Hospitalist
PROC: 05HM33Z Insertion of Infusion Device into Right Internal Jugular Vein, Percutaneous Approach (ICD-10-PCS; 2020-06-16)
PROC: B543ZZA Ultrasonography of Right Jugular Veins, Guidance (ICD-10-PCS; 2020-06-16)
PROC: 0BH17EZ Insertion of Endotracheal Airway into Trachea, Via Natural or Artificial Opening (ICD-10-PCS; 2020-06-16)
PROC: 5A1945Z Respiratory Ventilation, 24-96 Consecutive Hours (ICD-10-PCS; 2020-06-16)
PROC: 0JD70ZZ Extraction of Back Subcutaneous Tissue and Fascia, Open Approach (ICD-10-PCS; principal; 2020-06-16 10:30)
PROC: 5A1D70Z Performance of Urinary Filtration, Intermittent, Less than 6 Hours Per Day (ICD-10-PCS; 2020-06-17)
PROC: 05HM33Z Insertion of Infusion Device into Right Internal Jugular Vein, Percutaneous Approach (ICD-10-PCS; 2020-06-18)
PROC: B543ZZA Ultrasonography of Right Jugular Veins, Guidance (ICD-10-PCS; 2020-06-18)
PROC: 5A1D70Z Performance of Urinary Filtration, Intermittent, Less than 6 Hours Per Day (ICD-10-PCS; 2020-06-19)
PROC: 5A1D70Z Performance of Urinary Filtration, Intermittent, Less than 6 Hours Per Day (ICD-10-PCS; 2020-06-21)
PROC: 5A1D70Z Performance of Urinary Filtration, Intermittent, Less than 6 Hours Per Day (ICD-10-PCS; 2020-06-23)
PROC: 5A1D70Z Performance of Urinary Filtration, Intermittent, Less than 6 Hours Per Day (ICD-10-PCS; 2020-06-25)
PROC: 5A1D70Z Performance of Urinary Filtration, Intermittent, Less than 6 Hours Per Day (ICD-10-PCS; 2020-06-27)
PROC: 0JH63XZ Insertion of Tunneled Vascular Access Device into Chest Subcutaneous Tissue and Fascia, Percutaneous Approach (ICD-10-PCS; 2020-06-30)
PROC: 02HV33Z Insertion of Infusion Device into Superior Vena Cava, Percutaneous Approach (ICD-10-PCS; 2020-06-30)
PROC: 5A1D70Z Performance of Urinary Filtration, Intermittent, Less than 6 Hours Per Day (ICD-10-PCS; 2020-06-30)
PROC: 5A1D70Z Performance of Urinary Filtration, Intermittent, Less than 6 Hours Per Day (ICD-10-PCS; 2020-07-04)
DX: A41.9 Sepsis, unspecified organism (principal); J96.01 Acute respiratory failure with hypoxia; R65.21 Severe sepsis with septic shock; N17.0 Acute kidney failure with tubular necrosis; M72.6 Necrotizing fasciitis; I95.9 Hypotension, unspecified; E87.2 Acidosis; E66.01 Morbid (severe) obesity due to excess calories; E11.10 Type 2 diabetes mellitus with ketoacidosis without coma; E11.65 Type 2 diabetes mellitus with hyperglycemia; E11.9 Type 2 diabetes mellitus without complications; L03.116 Cellulitis of left lower limb; E78.5 Hyperlipidemia, unspecified; E03.9 Hypothyroidism, unspecified; M10.9 Gout, unspecified; M19.90 Unspecified osteoarthritis, unspecified site; K52.9 Noninfective gastroenteritis and colitis, unspecified; E11.22 Type 2 diabetes mellitus with diabetic chronic kidney disease; I12.9 Hypertensive chronic kidney disease with stage 1 through stage 4 chronic kidney disease, or unspecified chronic kidney disease; N18.4 Chronic kidney disease, stage 4 (severe); Z79.899 Other long term (current) drug therapy; Z79.01 Long term (current) use of anticoagulants; Z83.3 Family history of diabetes mellitus; Z82.49 Family history of ischemic heart disease and other diseases of the circulatory system; Z68.39 Body mass index [BMI] 39.0-39.9, adult
CPT/HCPCS: 36556; 36600; 82962; 86480; 97110-GP; 97116-GP; 97530-GP; A4301; C9113; G0378; J0330; J0885-EC; J1170; J1644; J1815; J2001; J2175; J2250; J2270; J2405; J2543; J2704; J2710; J3010; J3370; J3490; J7030; J7040; J7050; J7120; P9047; U0003